=== PATIENT | female | born 1955 | race African-American/Black ===

== ENCOUNTER 2019-01-24 17:12 | Emergency (ER) | payer OTHER, BC ==
[~2019-01-24] VITALS: Ht 154.9 cm; Wt 47.6 kg
[2019-01-24 17:13] VITALS: BP 123/69
[2019-01-25 00:09] VITALS: BP 121/68
[2019-01-25 00:26] VITALS: BP 121/68
--- NOTE | 2019-01-25 06:31 | NUR ---
PT IN ED HOLDING. ASSESSMENT CHARTED. PT' PEGTUB SITE COVERED WITH DRESSING. PLANS ARE TO HAVE IR REINSERT PEG TUBE TODAY. AT BEDSIDE. PT RESTING COMFORTABLY IN INPATIENT BED. CONTINUE WITH PLAN OF CARE.
[2019-01-25 13:05] VITALS: BP 151/64
== END 2019-01-25 13:20 | disposition home or self-care (01) ==
LOC: ER 17:12 → EROBS 19:08 → ER 01-25 13:20
DX: K94.23 Gastrostomy malfunction (principal); Z88.1 Allergy status to other antibiotic agents; Z86.73 Personal history of transient ischemic attack (TIA), and cerebral infarction without residual deficits; Z87.442 Personal history of urinary calculi

== ENCOUNTER 2020-02-18 17:19 | Inpatient (IN) | payer OTHER ==
[~2020-02-18] VITALS: Ht 152.4 cm; Wt 44.8 kg
[2020-02-18 18:19] LABS: HEMATOCRIT 55.1 % (37.0-47.0); HEMOGLOBIN 17.9 gm/dL (12.0-15.0); MCH 29.7 pg (26.0-34.0); MCHC 32.5 g/dL (28.0-37.0); MCV 91.6 fL (80.0-100.0); RBC 6.02 mil/uL (4.20-5.00); RDW 15.1 % (10.5-14.5); WBC 5.2 thou/uL (4.0-11.0)
[2020-02-18 18:47] LABS: ALBUMIN 3.7 g/dL (3.4-5.0); CALCIUM 10.2 mg/dL (8.5-10.1); CREATININE 0.9 mg/dL (0.6-1.0); TOTAL BILIRUBIN 1.6 mg/dL (<0.1-1.0); TOTAL PROTEIN 7.6 g/dL (6.4-8.2)
[2020-02-18 18:48] LABS: POTASSIUM 6.1 mmol/L (3.5-5.1)
[2020-02-18 18:56] LABS: ABSOLUTE NEUTROPHILS 3.1 thou/uL (1.4-8.2); ANISOCYTOSIS 1+
[2020-02-18 18:58] LABS: PLATELET COUNT 84 thou/uL (150-400)
[2020-02-18] MEDS ORDERED: NORVASC5 MG PO (19:24)
[2020-02-18] MEDS ORDERED: CELEXA 20 MG TA20 MG PO (19:25)
[2020-02-18] MEDS ORDERED: FAMOTIDINE 20 M20 MG PO (19:25)
[2020-02-18] MEDS ORDERED: CHILDREN'S ASPI81 M1 PO (19:26)
[2020-02-18] MEDS ORDERED: KEPPRA100 MG/1 M PO (19:27)
[2020-02-18] MEDS ORDERED: MILK OF MA400 MG/5 M PO (19:28)
[2020-02-18 20:21] LABS: URINE BILIRUBIN NEGATIVE (Negative); URINE BLOOD 3+ (Negative); URINE CLARITY SL CLOUDY; URINE COLOR YELLOW; URINE GLUCOSE-RANDOM* NEGATIVE (Negative); URINE KETONES TRACE (Negative); URINE PROTEIN (DIPSTICK) NEGATIVE (Negative); URINE UROBILINOGEN 0.2 E.U./dl (0.2-1.0)
[2020-02-18 20:23] LABS: URINE LEUKOCYTES-REFLEX 3+ (Negative); URINE NITRITE-REFLEX POSITIVE (Negative)
[2020-02-18 20:48] LABS: BACTERIA-REFLEX >30 Many /HPF (None Seen); CASTS None Seen /LPF (None Seen); CRYSTALS None Seen /LPF (None Seen); SQUAMOUS 0-3 Few /LPF (0-3)
--- NOTE | 2020-02-18 20:49 | NUR ---
WILL COLLECT LACTIC WHEN PT RETURNS FROM IMAGING.
[2020-02-18 22:13] VITALS: BP 106/71
--- NOTE | 2020-02-18 22:25 | NUR ---
ATTEMPTED TO CALL REPORT TO CCU. REPORTS "THEY WILL CALL YOU BACK."
[2020-02-18 23:17] VITALS: BP 103/67
[2020-02-19 01:22] LABS: TROPONIN-I <0.06 ng/mL (<0.06)
[2020-02-19 02:10] LABS: SODIUM 175 mmol/L (136-145)
--- NOTE | 2020-02-19 02:35 | NUR ---
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
[2020-02-19 05:13] VITALS: BP 108/70
[2020-02-19 06:14] LABS: MCH 29.1 pg (26.0-34.0); MCHC 31.4 g/dL (28.0-37.0); MCV 92.7 fL (80.0-100.0); RBC 4.53 mil/uL (4.20-5.00); RDW 15.2 % (10.5-14.5); WBC 6.1 thou/uL (4.0-11.0)
[2020-02-19 06:19] LABS: CALCIUM 8.3 mg/dL (8.5-10.1); CREATININE 0.8 mg/dL (0.6-1.0); HEMOGLOBIN 13.2 gm/dL (12.0-15.0); MAGNESIUM 2.2 mg/dL (1.8-2.4)
--- NOTE | 2020-02-19 07:57 | EKG ---
[facility] [place] [address] ELECTROCARDIOGRAM REPORT Name: NICKOLAS FIELDS Room #: 218-P ADM IN M.R.#: [id number] Admission: 02/18/20 Attend Phys: Roel Galvez MD Discharge: Date of : 55 Report #: [id number] THIS REPORT FOR: cc: Roel Cuevas MD, Paul Piezas MD Lundgren,Jonny Ruelas MD [facility] ~ THIS REPORT FOR: //name// [facility] ED Test Date: 2020-02-18 Test Time: 18:29:49 Pat Name: NICKOLAS FIELDS Department: Room: 218 Gender: F Morning News Anchor: PRO : 1955 Requested By: Courtney Christina Order Number: [id number] MD: Jonny Redd Measurements Intervals [place] Rate: 96 P: 70 AR: 115 QRS: 65 QRSD: 92 T: 84 QT: 363 QTc: 459 Interpretive Statements Sinus rhythm Borderline short AR interval Nonspecific ST and T wave abnormality Compared to ECG 02/20/2016 14:54:37 Sinus bradycardia no longer present Nonspecific ST and T wave abnormality is now present Electronically Signed On 02-19-2020 7:56:28 CDT by Jonny Redd [email or web address] <ELECTRONICALLY SIGNED> By: Jonny Redd MD, [facility] 02/19/20 0756 1829 182 Jonny Redd MD, [facility] /EPI
[2020-02-19 08:00] VITALS: BP 105/73
[2020-02-19 08:13] LABS: APTT 29.6 Seconds (24.5-32.8); INR 1.3; PROTIME 13.7 Seconds (9.3-11.4)
--- NOTE | 2020-02-19 10:56 | NUR ---
Once PEG ready to use, recommend jevity 1.5 to start 20ml/hr and progress to goal of 35ml/hr. Defer any fluid iv, or water flushes to renal physician.
--- NOTE | 2020-02-19 11:45 | NUR ---
CHART REVIEWED. SPOKE TO Pt WHO REFUSES ANY P.T. AT THIS TIME. SHE STATES THAT JUST WANTS TO DO P.T. WITH HER AT HOME SHE'S BEEN DOING. P.T. PHONED Pt'S , JOHAN, WHO STATES THAT Pt IS DEPENDENT FOR ALL ADL'S AND ALL MOBILITY. WILL D/C P.T. AT THIS TIME Pt REFUSED AND Pt IS AT HER BASELINE.
[2020-02-19 13:14] VITALS: BP 109/71
--- NOTE | 2020-02-19 13:50 | NUR ---
Patient admits with hyponatremia. Sp with spouse by phone he reports with hx of CVA. He assists with all adls. She does not ambulate. Spouse reports he has a wc with a cushion in home and he assists with her transfers by "picking up" the patient. Spouse reports peg tube dislodged at home. He reports she was eating orally before peg tube dislodged, but also used peg tube. He approximated can and 1/2 a day of isosource. Spouse reports PCP is Dr Henriquez. HH in past and agreeable to HH care at [facility]. Plan for patient to [facility] [place] to care of spouse.
[2020-02-19 16:00] VITALS: BP 104/65
--- NOTE | 2020-02-19 18:24 | NUR ---
ASSUMED CARE OF PT AT SHIFT CHANGE. ASSESSMENTS CHARTED. MEDS GIVEN PER JAN. PT ALERT TO SELF. PEARSON IN PLACE. UO TODAY APPROX 475ML, FLUIDS 2860ML, BLADDER SCAN SHOWED 64ML. NOTIFIED DR. MARQUEZ. PLAN FOR POSSIBLE UTERINE ULTRASOUND TOMORROW AND EGD ON WEDNESDAY, WILL REPLACE PEG TUBE AT THAT TIME. WILL CONTINUE TO MONITOR AND FOLLOW POC.
[2020-02-19 19:48] VITALS: BP 109/63
--- NOTE | 2020-02-20 04:23 | NUR ---
ASSUMED CARE 1900. PT ALERT AND ORIENTED X 1. RESPONDS TO YES/NO QUESTIONS. FLUIDS D5 AT 250 ML/HR. PEARSON CATHETER INTACT. GOOD DRAINAGE. Q2 TURNS. VSS. PT AWAITS PEG TUBE PLACEMENTS. PT DENIES PAIN. NO OTHER C/O. WILL CONTINUE WITH CURRENT POC.
[2020-02-20 04:36] VITALS: BP 107/69
[2020-02-20 06:38] LABS: ALBUMIN 2.3 g/dL (3.4-5.0); CALCIUM 7.5 mg/dL (8.5-10.1); CREATININE 0.7 mg/dL (0.6-1.0); PHOSPHORUS 1.1 mg/dL (2.5-4.9)
[2020-02-20 06:42] LABS: POTASSIUM 2.8 mmol/L (3.5-5.1); TROPONIN-I 0.86 ng/mL (<0.06)
[2020-02-20 08:00] VITALS: BP 90/62
--- NOTE | 2020-02-20 09:27 | EKG ---
[facility] Carmela Mulilns [facility] [address] ELECTROCARDIOGRAM REPORT Name: NICKOLAS FIELDS Room #: 218-P ADM IN M.R.#: [id number] Admission: 02/18/20 Attend Phys: Gentry Felipe MD Discharge: Date of : 55 Report #: [id number] THIS REPORT FOR: cc: Roel Cuevas MD, Paul Piezas MD Couchonnal,Keshav Herrera MD ~ THIS REPORT FOR: //name// [facility] Test Date: 2020-02-20 Test Time: 08:32:59 Pat Name: NICKOLAS FIELDS Department: Room: 218 P Gender: F Sole Scraper: TERESE : 1955 Requested By: Sheela Bob Order Number: [id number] MD: Keshav Brand Measurements Intervals [place] Rate: 86 P: 33 WV: 123 QRS: -36 QRSD: 77 T: -43 QT: 491 QTc: 588 Interpretive Statements Sinus rhythm Inferior infarct, old Anteroseptal infarct, old Lateral leads are also involved Compared to ECG 02/18/2020 18:29:49 Electronically Signed On 02-20-2020 9:25:55 CDT by Keshav Brand [email or web address] <ELECTRONICALLY SIGNED> By: Keshav Brand MD 02/20/20924 1 1 Keshav Brand MD /EPI
--- NOTE | 2020-02-20 10:46 | 2DMMODE ---
[facility] [place] [address] 2 D/M-MODE ECHOCARDIOGRAM Name: NICKOLAS FIELDS Room #: 218-P ADM IN M.R.#: [id number] Admission: 02/18/20 Attend Phys: Gentry Felipe MD Discharge: Date of : 55 Report #: [id number] THIS REPORT FOR: cc: Roel Cuevas MD, Paul Piezas MD Lammoglia, Francisco J. MD ~ APPROVED REPORT Study performed: 02/20/2020 09:20:08 EXAM: Comprehensive 2D, Doppler, and color-flow Echocardiogram Patient Location: Bedside Room #: 218 Status: routine BSA: 1.21 HR: 100 bpm BP: 107/69 mmHg Rhythm: Tachycardia Other Information Study Quality: Technically DifficultTechnically Limited Technically limited study due to uncooperative patient, inability to position patient. Indications Elevated Troponin Hypertension/HDD 2D Dimensions IVC: 14.00 mm Tricuspid Valve TR Peak Joseph.: 2.31 m/s TR Peak Gr.: 21.27 mmHg PA Pressure: 26.00 mmHg Left Ventricle The left ventricle is normal size. There is hypokinesis in the apex and adjacent wall. There is normal left ventricular wall thickness. The left ventricular ejection fraction is within the normal range. LVEF is 55% by calculations although visually the ejection fraction is closer to 40% with the apical wall motion abnormalities The left ventricular diastolic function is abnormal. [facility] [address] [place] [address] 2 D/M-MODE ECHOCARDIOGRAM Name: NICKOLAS FIELDS Room #: 218-P ADM IN M.R.#: [id number] Admission: 02/18/20 Attend Phys: Gentry Felipe, Discharge: Date of : 55 Report #: [id number] Right Ventricle The right ventricle is normal size. The right ventricular systolic function is normal. Atria The left atrium size is normal. The right atrium size is normal. Aortic Valve The aortic valve is normal in structure. No aortic regurgitation is present. There is no aortic valvular stenosis. Mitral Valve The mitral valve is normal in structure. Trace mitral regurgitation. No evidence of mitral valve stenosis. Tricuspid Valve The tricuspid valve is normal in structure. There is trace tricuspid regurgitation. Estimated PAP 26 mmHg. There is no pulmonary hypertension. Pulmonic Valve Pulmonic valve is not well visualized. Great Vessels The aortic root is normal in size. IVC is normal in size and collapses >50% with inspiration. Pericardium There is no pericardial effusion. <Conclusion> The left ventricle is normal size. There is hypokinesis in the apex and adjacent wall. LVEF is 55% by calculations although visually the ejection fraction is closer to 40% with the apical wall motion abnormalities The aortic valve is normal in structure. The mitral valve is normal in structure. Trace mitral regurgitation. The tricuspid valve is normal in structure. There is trace tricuspid regurgitation. Estimated PAP 26 mmHg. There is no pulmonary hypertension. [facility] [address] [place] [address] 2 D/M-MODE ECHOCARDIOGRAM Name: CORA FIELDSERNESTO Bah Room #: 218-P ADM IN .R.#: [id number] Admission: 02/18/20 Attend Phys: Gentry Felipe, Discharge: Date of : 55 Report #: [id number] Pulmonic valve is not well visualized. There is no pericardial effusion. <ELECTRONICALLY SIGNED> By: Jorge Cruz MD 02/20/20 1045 1045 1045 Jorge Cruz MD /INF
[2020-02-20 12:00] VITALS: BP 123/93
[2020-02-20 13:29] LABS: CALCIUM 8.1 mg/dL (8.5-10.1); CREATININE 0.8 mg/dL (0.6-1.0); PHOSPHORUS 1.1 mg/dL (2.5-4.9)
[2020-02-20 16:00] VITALS: BP 91/77
--- NOTE | 2020-02-20 16:01 | NUR ---
FAXED REFERRAL TO [facility] SPOKE WITH SERAFIN IN INTAKE SHE RECEIVED REFERRAL AND CAN ACCEPT AT DC. DP TO FOLLOW.
--- NOTE | 2020-02-20 17:38 | NUR ---
ASSUMED CARE OF PT AT SHIFT CHANGE. ASSESSMENT CHARTED. MEDS GIVEN PER JAN. PT ALERT TO SELF. NO C/O PAIN. CRITICAL VALUES OF POTSSIUM ADDRESS WITH IV POTASSIUM REPLACEMENT. CARDIOLOGY CONSULTED D/T ELEVATED TROPONIN. GYNOCOLOGY CONSULT REQUESTED HUSBANDS CONTACT INFO TO DISCUSS OPTIONS. PLAN FOR EDG AND PEG PLACEMENT TOMORROW. HAS CONSENTED TO PROCEDURE. UO SIGNIFICANTLY INCREASED FROM YESTERDAY. WILL CONTINUE TO MONITOR AND FOLLOW POC.
[2020-02-20 19:12] LABS: CALCIUM 8.2 mg/dL (8.5-10.1); CREATININE 0.6 mg/dL (0.6-1.0); PHOSPHORUS 4.3 mg/dL (2.5-4.9)
[2020-02-20 19:55] VITALS: BP 87/61
[2020-02-21 00:13] VITALS: BP 74/40
[2020-02-21 01:15] VITALS: BP 80/49
[2020-02-21 01:20] LABS: CHOLESTEROL 162 mg/dL (<200); HDL CHOLESTEROL 34 mg/dL (>40); LDL CHOLESTEROL 95 mg/dL (<100); SERUM ASSESSMENT Clear; TC:HDL 4.8 Ratio (Not establshd); TRIGLYCERIDE 165 mg/dL (<150); VLDL 33 mg/dL (<40)
--- NOTE | 2020-02-21 04:16 | NUR ---
ASSESSMENTS CHARTED, MEDS CHARTED GIVEN. PATIENT BEDBOUND. ALERT TO PERSON. PATIENT SINUS RHYTHM TO SINUS TACH ON TELEMETRY. ON ROOM AIR. PEARSON IN PLACE. PATIENT IS STRICT NPO. MOUTH CARE WAS GIVEN. PATIENT IS SCHEDULED TO HAVE AND EGD AND HER PEG TUBE REPLACED TODAY. Q2 TURNS DURING SHIFT. PATIENT HAS RIGHT SIDED WEAKNESS AND CONTRACTURES. ON LOW AIR LOSS MATTRESS TO PROTECT RADHA PROMINENCES. DENIED PAIN. PATIENTS BLOOD PRESSURE WAS SOFT DURING DAY AND AT START OF SHIFT, DECREASED AT MIDNIGHT VITALS WITH MAP FALLING TO 40. BOLUS FLUIDS WERE GIVEN AND GTT WAS CONTINUED.
[2020-02-21 04:45] VITALS: BP 90/66
[2020-02-21 08:25] LABS: HEMATOCRIT 44.1 % (37.0-47.0); HEMOGLOBIN 14.5 gm/dL (12.0-15.0); MCH 29.3 pg (26.0-34.0); MCHC 32.9 g/dL (28.0-37.0); RBC 4.96 mil/uL (4.20-5.00); RDW 14.5 % (10.5-14.5); WBC 5.8 thou/uL (4.0-11.0)
--- NOTE | 2020-02-21 09:28 | NUR ---
ASSUMED CARE OF OF PT AT SHIFT CHANGE, SEE SEPARATE INTERVENTIONS FOR ASSESSMENTS. PT VERY LANGUID, MINIMAL MOVEMENT, OPENS EYES, A&0X2-3, DENIES ANY NEEDS/PAIN, SWABBED MOUTH AND APPLIED MOISTURIZER, BATH ALREADY DONE BY STOCK SUPERVISOR, POSITIONING EVERY TWO HOURS - THIS IS WHEN SHE HAS PAIN. NPO, NOTED PROCEDURE FOR TODAY, WILL CALL FAMILY SOON ABLE TO SEEK PERMISSION AND HAVE ANOTHER RN CO-SIGN, IF APPLICABLE. ENCOURAGED HER TO USE CALL LIGHT FOR NEEDS AND IF SHE FELT TOO WEAK AND WAS UNABLE TO BANG CALL LIGHT ON BED RAIL. SHE SHOWED RETURN DEMO, WITH SLIGHT STRUGGLE. FREQ CHECKS KELLE W/COMFORT. WILL CONTINUE TO MONITOR
--- NOTE | 2020-02-21 10:57 | NUR ---
spoke with dietary plan peg tube and then home with HH care. Informed kennel assistant patients spouse reports isosource at home and oral eating programmer business. Patient to util;ize only peg at home. Low Heel Builder will sp wtih spouse and educate on feeding of peg tube at home.
[2020-02-21 11:30] VITALS: BP 85/55
[2020-02-21 16:30] VITALS: BP 117/66
[2020-02-21 20:26] VITALS: BP 89/61
[2020-02-22] VITALS (14 sets, daily range): BP systolic 70–110; BP diastolic 47–78
--- NOTE | 2020-02-22 05:36 | NUR ---
ASSUMED PT CARE AT AROUND 1900, PT IS ALERT AND ORIENTED TO SELF, ANSWERS YES OR NO QUESTIONS, DENIES PAIN OR SOB, ST ON THE MONITOR, BP DROPPED THIS MORNING, SHIP LABORER NOTIFIED AND ORDER OF NS RECEIVED AND ADMINISTERED ORDERED, PT REMAINED NPO, QTURNS MAINTAINED, PT IS RESTING IN BED WITH NO SIGNS OF DISTRESS NOTED, WILL CONTINUE TO MONITOR
[2020-02-22 07:28] LABS: HEMATOCRIT 37.1 % (37.0-47.0); MCH 30.1 pg (26.0-34.0); MCHC 33.3 g/dL (28.0-37.0); MCV 90.4 fL (80.0-100.0); RBC 4.1 mil/uL (4.20-5.00); RDW 14.5 % (10.5-14.5); WBC 7.7 thou/uL (4.0-11.0)
[2020-02-22 07:54] LABS: HEMOGLOBIN 12.4 gm/dL (12.0-15.0)
[2020-02-22 08:03] LABS: CALCIUM 8.1 mg/dL (8.5-10.1); CREATININE 0.6 mg/dL (0.6-1.0); POTASSIUM 3.2 mmol/L (3.5-5.1)
[2020-02-22 08:09] LABS: TROPONIN-I 1.05 ng/mL (<0.06)
--- NOTE | 2020-02-22 13:20 | EKG ---
[facility] Carmela [place] [address] ELECTROCARDIOGRAM REPORT Name: NICKOLAS FIELDS Room #: 218-P ADM IN M.R.#: [id number] Admission: 02/18/20 Attend Phys: Gentry Felipe MD Discharge: Date of : 55 Report #: [id number] THIS REPORT FOR: cc: oRel Cuevas MD, Paul Piezas MD Couchonnal,Keshav Herrera MD ~ THIS REPORT FOR: //name// [facility] Test Date: 2020-02-22 Test Time: 07:46:42 Pat Name: NICKOLAS FIELDS Department: Room: 218 P Gender: F Sr. Payroll Manager: TERESE : 1955 Requested By: Enedina Hearn Order Number: [id number] MD: Keshav Brand Measurements Intervals [place] Rate: 112 P: 63 GA: 92 QRS: -25 QRSD: 75 T: 243 QT: 465 QTc: 635 Interpretive Statements Sinus tachycardia Inferior infarct, age indeterminate Abnrm T, consider ischemia, anterolateral lds Compared to ECG 02/20/2020 08:32:59 Electronically Signed On 02-22-2020 13:18:46 CDT by Keshav Brand [email or web address] <ELECTRONICALLY SIGNED> By: Keshav Brand MD 02/22/20 1318 Keshav Brand MD /EPI
--- NOTE | 2020-02-22 13:21 | NUR ---
SW reviewed chart and spoke with nursing and attending physician. Pt was scheduled to have peg tube placed today. Pt's blood pressure was low earlier today. Peg tube placement postponed. Plan is for pt to have peg placed tomorrow, and then home with [facility] when medically stable. ANALI is following to assist as needed with discharge planning.
--- NOTE | 2020-02-22 19:52 | NUR ---
RECEIVED PT'S CARE AROUND 0740; PT. ON BED; RESTING WITH EYES CLOSED; PER NIGHT RN PT'S SBP LOW; BOLUS GIVEN, BUT BP RE-ASSESSMENT NOT PERFORMED; SBP ASSESSED; SBP ON THE 90s; ST ON THE MONITOR; PER ORDER PT'S STATUS MS; NPO; NOT CONTINUE FLUIDS ORDERS; PHYSICIAN PAGED; ORDERS RECEIVED & ON PLACED; ON EMAR NS AT 250ML/H; PHYSICIAN ROUNDING AROUND 0900; PER VERBAL ORDERS STARTED BOLUS OPEN WIDE; 1000 ML/H; EKG PERFORMED; DIFFERENT FROM LAST ONE; WOODWORK SALVAGE INSPECTOR SUPERVISOR SPRING UP ROUNDING; AWARED OF IT; UPDATE ABOUT PT'S HEALTH STATUS; ORDERS ON PLACE; TROPONING ELEVATED; SUPERVISOR SPRING UP NOTIFIED; BP MONITORING; CHECK CHARTING; DURING GI ROUNDING; PHYSICIAN UPDATE ABOUT PT'S STATUS; NO IV FLUIS OR IV NUTRITION; NO NEW ORDERS; ORDERS ON PLACED; PPN STARTED; CONTINUOS IV FLUIDS STARTED; SBP ABOVE 100s; CALL RECEIVED FROM SPOUSE; UPDATED ABOUT PT'S STATUS; URINE OUTPUT 150 ML/H; PHYSICIAN NOTIFIED; NO NEW ORDERS; VENOUS ABGs ORDERS ON PLACE; RT NOTIFIED; TURNED FROM SIDE TO SIDE; ASSESSMENT CHARGED; FOLLOWING POC; PASSED ON REPORT;
[2020-02-23 00:19] VITALS: BP 105/71
[2020-02-23 04:26] VITALS: BP 102/58
--- NOTE | 2020-02-23 04:35 | NUR ---
PT RESTING QUIETLY IN BED, TURNING NEEDED, LEGS ELEVATED ON PILLOW, PEARSON WITH DARK YELLOW DRAINAGE WITH 500ML OUT PUT THIS SHIFT, BM THIS AM INCON'T, PPN AND LIPIDS INFUSING, NPO WAITING FOR PEG PLACEMENT WHEN STABLE, C/O OF RIGHT SIDED PAIN WHEN TURNING DENIES NEED FOR PAIN MEDS, WILL CON'T TO MONITOR PER PPOC.
[2020-02-23 05:29] LABS: MCH 30.6 pg (26.0-34.0); MCHC 33.6 g/dL (28.0-37.0)
[2020-02-23 05:33] LABS: HEMATOCRIT 34.1 % (37.0-47.0); HEMOGLOBIN 11.5 gm/dL (12.0-15.0); MCV 91.1 fL (80.0-100.0); PLATELET COUNT 48 thou/uL (150-400); RBC 3.75 mil/uL (4.20-5.00); RDW 14.2 % (10.5-14.5); WBC 5.3 thou/uL (4.0-11.0)
[2020-02-23 05:47] LABS: CALCIUM 7.3 mg/dL (8.5-10.1); CREATININE 0.5 mg/dL (0.6-1.0); POTASSIUM 3.1 mmol/L (3.5-5.1)
[2020-02-23 07:00] VITALS: BP 91/60
--- NOTE | 2020-02-23 07:36 | NUR ---
ASSUMED CARE OF PT AT SHIFT CHANGE, ALERT TO BDATE, SLURRED SPEECH, LIKES TO KEEP EYES CLOSED, WILL ANSWER YES OR NO TO CHANGING TV CHANNELS FOR VARIETY. SEE SEPARATE INTERVENTIONS FOR ASSESSMENTS. TURNING MONSTER PACHECO RUNNING SO DOING EVERY 6H BG CHECKS, WNL AT THIS TIME. IS NOT IMPULSIVE ALTHOUGH BED ALARM ENGAGED. NOTED MAG LOW WILL FIND OUT COMPATIBILITY AND RUN THIS A.M. ENCOURAGED PT TO CALL OUT OR USE CALL LIGHT FOR ANY NEEDS, SHE NODS AND CLOSES HER EYES. WILL CONTINUE TO MONITOR FREQUENTLY FOR COMFORT
--- NOTE | 2020-02-23 08:30 | NUR ---
New recommendations. Once PEG placed, start jevity 1.5 at 25ml/hr to reach goal of 45ml/hr. Bolus for home recs are 1 carton, 4-5x per day.
--- NOTE | 2020-02-23 09:30 | NUR ---
If patient should dc over weekend Please call [phone] to alert of dc. Fax orders to [phone].
[2020-02-23 09:31] VITALS: BP 91/60
[2020-02-23 13:34] LABS: ABSOLUTE NEUTROPHILS 3.7 thou/uL (1.4-8.2); LARGE PLATELETS FEW; PLATELET ESTIMATE DECREASED
[2020-02-23 16:20] VITALS: BP 97/62
[2020-02-23 20:05] VITALS: BP 99/60
[2020-02-24 05:05] VITALS: BP 102/69
--- NOTE | 2020-02-24 08:06 | NUR ---
ASSUME CARE 1900. PT/VITALS TABLE. BP RUNS SOFT BUT STABLE. NO DISTRESS NOTED THROUGTH THE NIGHT. SR/ST ON MONITOR. ADEQUARTE REST NOTED. SATS OIK ON ROOM AIR. ASSESSMENT CHARTED. PROGRESSING MODERATELY WITH POC. PLAN IS CONTIUE WITH PPN, ABX AND POSSIBLITY OF PEG TUBE PLACEMENT. WILL CONTIUE TO MONITOR ND FOLLOW WITH POC
[2020-02-24 08:15] VITALS: BP 97/62
[2020-02-24 08:34] LABS: CALCIUM 7.7 mg/dL (8.5-10.1); CREATININE 0.5 mg/dL (0.6-1.0); MAGNESIUM 1.8 mg/dL (1.8-2.4)
[2020-02-24 12:15] VITALS: BP 109/76
[2020-02-24 16:47] VITALS: BP 100/64
--- NOTE | 2020-02-24 18:00 | NUR ---
RECEIVED PT'S CARE AROUND 0740; PT. ON BED RESTING WITH EYES CLOSED; EQUAL CHEST RISING NOTICED; DURING AM ASSESSMENT SLEEP INTERRUPTED; ALERT TO PERSON; NO C/O PAIN AT REST; C/O PAIN WHEN TURNED FROM SIDE TO SIDE; AM MEDICATIONS GIVEN; NOTICED AMIODARONE FILTER ON PPN LINE & NO FILTER ON LIPIDS LINE; LIPIDS FILTER CONNECTED TO LIPIDS LINE & D/C PPN FILTER; SR-ST ON THE MONITOR; BP WNL; URINE OUTPUT ABOVE 1000 ML; CHECK CHARTING; TURNED FROM SIDE TO SIDE THROUGH THE DAY; HAD 2 BMs; SPOUSE CALLED TWICE DURING THE DAY; UPDATE ABOUT PT'S HEALTH; REQUESTED TO TALK WITH PT.; PT. ABLE TO TALK WITH FAMILY; ASSESSMENT CHARGED; FOLLOWING POC; WILL PASS ON REPORT;
[2020-02-24 20:57] VITALS: BP 119/55
[2020-02-25] VITALS: BP 98/69
[2020-02-25 05:00] VITALS: BP 94/54
--- NOTE | 2020-02-25 06:33 | NUR ---
PATIENTS CARES WERE ASSUNED AT SHIFT CHANGE. PATIENT WAS ASSESSED AND MEDS WERE PASSED.PATIENT CONTINUED TO BE NONVERBAL THIS SHIFT EVEN WITH ENCOURGMENT TO CONVERSE. PATIENT WAS TURNED 2Q HOURS FOR COMFORT. PATIENT DID SLEEP MOST OF THIS SHIFT. HOURLY ROUNDS WERE DONE. THE BED IS IN A LOW AND LOCKED POSITION
[2020-02-25 08:14] VITALS: BP 98/70
[2020-02-25 11:24] VITALS: BP 99/60
[2020-02-25 15:36] VITALS: BP 97/63
--- NOTE | 2020-02-25 16:19 | NUR ---
PT CARE ASSUMED APPROX 0700. ASSESSMENTS CHARTED. PT DENIES PAIN AND SOA. VSS. TURNING PT Q2HRS AND PRN. TOLERATING POC. SLEPT MOST OF SHIFT BUT REMAINED EASILY AROUSABLE. NO DISTRESS NOTED.
[2020-02-25 19:56] VITALS: BP 99/68
[2020-02-26] VITALS (7 sets, daily range): BP systolic 81–107; BP diastolic 56–67
[2020-02-26 05:16] LABS: HEMATOCRIT 33.5 % (37.0-47.0); HEMOGLOBIN 11.4 gm/dL (12.0-15.0); MCH 30.3 pg (26.0-34.0); MCV 88.9 fL (80.0-100.0); RBC 3.76 mil/uL (4.20-5.00); RDW 14.6 % (10.5-14.5); WBC 4.9 thou/uL (4.0-11.0)
[2020-02-26 05:28] LABS: ALBUMIN 1.5 g/dL (3.4-5.0); CALCIUM 7.6 mg/dL (8.5-10.1); CREATININE 0.5 mg/dL (0.6-1.0); POTASSIUM 3.6 mmol/L (3.5-5.1); TOTAL BILIRUBIN 0.5 mg/dL (<0.1-1.0); TOTAL PROTEIN 4.5 g/dL (6.4-8.2)
--- NOTE | 2020-02-26 07:23 | HC ---
[facility] [place] [address] CONSULTATION Name: NICKOLAS FIELDS Room #: 218-P ADM IN M.R.#: [id number] Admission: 02/18/20 Attend Phys: Gentry Felipe MD Discharge: Date of : 55 Report #: [id number] THIS REPORT FOR: cc: Roel Cuevas MD, Roel Rivers,Parveen Serrano MD ~ CC: Roel Cuevas DATE OF SERVICE: 02/19/2020 REASON FOR CONSULTATION: Hypernatremia. REASON FOR PRESENTATION: Mental status changes. HISTORY OF PRESENT ILLNESS: A 64-year-old who is not able to provide me with any of the details of her history. She had a hemorrhagic stroke back in 2016, complicated by significant dysphagia, status post PEG tube placement, dislodgement. There have been major issues with her PEG tube, refusal to eat and drink. 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 She reported some vaginal bleeding. When the patient presented yesterday, she was found to have a sodium of 173 mandating Nephrology consultation PAST MEDICAL HISTORY: Unobtainable given the patient's current mental status; however, it does look like that the patient has had repeated hospitalizations previously back in 2019 and it is listed that the patient had be followin. Status post hemorrhagic stroke. 2. Kidney stones. 3. Seizure history. ALLERGIES: Per medical chart, LEVOFLOXACIN. REVIEW OF SYSTEMS: Unobtainable given the patient's current mental status. SOCIAL HISTORY: Unobtainable given the patient's current mental status. FAMILY HISTORY: Unobtainable given the patient's current mental status. PHYSICAL EXAMINATION: VITAL SIGNS: Blood pressure is 108/70, temperature 36.3. The patient is completely disoriented. She is noncommunicative. HEAD AND NECK: No jugular venous distention. Dry mucous membrane. CHEST: No crackles. CARDIOVASCULAR: No rub detected. ABDOMEN: Soft, nontender. [facility] [address] [place] [address] CONSULTATION Name: NICKOLAS FIELDS Niurka Room #: 218-P [facility] IN M.R.#: [id number] Admission: 02/18/20 Attend Phys: Gentry Felipe MD Discharge: Date of : 55 Report #: [id number] EXTREMITIES: Lower extremities, no edema. Overall, condition, extremely cachectic and emaciated. LABORATORY DATA: Sodium is 170, potassium is 3, BUN is 34, creatinine is 0.8. ASSESSMENT, IMPRESSION, AND PLAN: 1. Severe hypernatremia due to severe free water deficit. 2. Increase the rate of her current IV fluid. 3. Cultures obtained and we will follow. Sodium is already trending down and it is expected that it will continue to trend down. 4. Discussed with the family plans regarding her long-term issues, intake. This will be recurrent electrolyte problems. 5. Replace potassium. 6. We will continue to follow. <ELECTRONICALLY SIGNED> By: Parveen Rivers MD 02/26/20 0723 0743 0815 Parveen Rivers MD /nt
--- NOTE | 2020-02-26 07:38 | NUR ---
PATIENT CARES WERE ASSUMED AT SHIFT CHANGE. PATIENT WAS ASSESSED AND MEDS WERE PASSED. PATIENT REMAINS NON VERBAL FOR ME X2 NIGHTS. PATIENT WAS TURNED 2Q HOURS. HOURLY ROUNDS WERE DONE. THE BED IS IN A LOW AND LOCKED POSITION
--- NOTE | 2020-02-26 11:39 | NUR ---
Spoke with spouse. Patient rec HH from [facility] in past but they reported last week at capacity. Sp with no prference for HH care and agreeable to [facility] at [place]. Cont plan for home with HH at [place].
--- NOTE | 2020-02-26 14:46 | NUR ---
FAXED CLINICAL UPDATE TO [facility] SPOKE WITH SERAFIN IN INTAKE SHE RECEIVED UPDATE. DP TO FOLLOW.
[2020-02-26 15:07] LABS: GLOBULIN TOTAL 2.3 g/dL (2.2-3.9); M-SPIKE Not Observed g/dL (Not Observed)
--- NOTE | 2020-02-26 16:22 | NUR ---
CONVERSANT, FEW WORDS BUT APPROPRIATE EXCEPT ASKS ONCE FOR ASSISTANCE WITH HER VACUUM DRAFTER TOPOGRAPHICAL. REPOSITIONED. PEG TUBE PLACEMENT PLANNED FOR TOMORROW 02/26. ST PER TELE. TEMP 99.3 AXILLARY NOTED, DR. CEJA INFORMED. PLTS 91, BP SOFT. FALL PRECAUTIONS IN PLACE. WILL CONTINUE TO FOLLOW CLOSELY.
--- NOTE | 2020-02-27 03:43 | NUR ---
A&O TO SELF, ASESSMENTS CHARTED, ST ON THE MONITOR, QTURNS MAINTAINED, BP REMAINS SOFT BUT STABLE, REMAINS NPO WITH LIPIDS AND PPN ORDERED, BS STABLE, DENIES PAIN OR SOB, SLEEPING WITH NO DISTRESS NOTED AT THIS TIME, WILL CONTINUE TO MONITOR
[2020-02-27 04:22] VITALS: BP 102/61
[2020-02-27 05:00] LABS: HEMATOCRIT 32.2 % (37.0-47.0); HEMOGLOBIN 11.2 gm/dL (12.0-15.0); MCH 30.9 pg (26.0-34.0); MCHC 34.8 g/dL (28.0-37.0); MCV 88.7 fL (80.0-100.0); RBC 3.63 mil/uL (4.20-5.00); RDW 14.4 % (10.5-14.5); WBC 5.5 thou/uL (4.0-11.0)
[2020-02-27 08:42] VITALS: BP 100/64
[2020-02-27 10:30] VITALS: BP 106/53
[2020-02-27 10:41] VITALS: BP 106/53
[2020-02-27 16:51] VITALS: BP 99/64
--- NOTE | 2020-02-27 17:26 | NUR ---
RECEIVED PT'S CARE AROUND 0735; PT. ON BED; EQUAL CHEST RISING NOTICED; DURING AM ASSESSMENT PT. ALERT TO PERSON; NO C/O PAIN; AM MEDICATION GIVEN BEFORE GOING TO GI LAB; BACK FROM GI LAB AROUND 1020; PEG TUBE ON PLACED; ABD BINDER ON PLACED; PER GI PROFESSIONAL DEVELOPMENT MANAGER TIM PPN & LIPIDS FOR TODAY; 02/27/2020; TURNED FROM SIDE TO SIDE THROUGH THE DAY; HAD BM; BROWN, LIQUID MUCOUS; ST ON THE MONITOR; LOW 100s; GOOD URINE OUTPUT; CHECK CHARTING; ASSESSMENT CHARGED; FOLLOWING POC; WILL PASS ON REPORT;
[2020-02-27 20:45] VITALS: BP 119/65
[2020-02-28] VITALS (8 sets, daily range): BP systolic 91–107; BP diastolic 60–68
--- NOTE | 2020-02-28 07:39 | NUR ---
ASSUMED PT CARE AT AROUND 1900, PT IS ALERT AND ORIENTYED TO SELF, ANSWERS QUESTIONS APPROPRIATELY, ST/SR ON THE MONITOR, DENIES PAIN OR SOB, PRG TUBE IN PLACE, CONTINUES TO RECEIVE PPN/LIPIDS ORDERED, REMAINED INCONTINENT OF BOWEL, PEARSON IN PLACE DRAINING CLEAR YELLOW URINE, BP REMAINS SOFT BUT STABLE, SLEPT WELL THROUGH THE NIGHT, PROGRESSIN SLOWLY TOWARDS POC
--- NOTE | 2020-02-28 08:38 | NUR ---
When PEG ready to use recommend start jevity 1.5 at 25ml/hr and progress to goal of 45ml/hr. Taper off PPN as tube feed rate increases. Recommend water flushes of 200ml QID. Once continuous rate tolerated, then transition to bolus for home of jevity 1.5, 4-5 cartons per day followed by 200ml water flush.
--- NOTE | 2020-02-28 13:29 | NUR ---
tenative plan for dc tomorrow with care. Sp with RN
--- NOTE | 2020-02-28 18:22 | NUR ---
PT CARE ASSUMED APPROXIMATELY 0700. PT ASSESSMENTS CHARTED. PT MEDICATION CHARTED. LIPIDS COMPLETE. PROCAL COMPLETE. PT ON TUBE FEEDING 1225. PEARSON D/C'D. PT TURNED Q2, PT COMPLAINS OF PAIN WHEN TURNED. VSS. PT DENIES PAIN CURRENTLY. NURSE WILL CONTINUE TO MONITOR.
[2020-02-29 04:06] VITALS: BP 104/63
[2020-02-29 08:08] VITALS: BP 92/62
[2020-02-29 11:30] VITALS: BP 93/56
[2020-02-29 11:43] VITALS: BP 91/60
--- NOTE | 2020-02-29 13:17 | NUR ---
PT DISCHARGING TODAY TO HOME WITH [facility] FAXED DC ORDERS/SUMMARY SPOKE WITH YAYO IN INTAKE SHE RECEIVED ORDERS AND WILL NOTIFY PT TIME OF VISITS.
--- NOTE | 2020-02-29 13:31 | NUR ---
RECEIVED PT'S CARE AROUND 0720; PT. ON BED; RESTING WITH EYES CLOSED; EQUAL CHEST RISING NOTICED; AM MEDICATIONS GIVEN; NO C/O PAIN; FEEDING RATE 45 ML/H; AFTER 1000 FEEDING RESIDUAL MONITOR; 150 ML OBTAINED; DR. CEJA ROUNDING ON PT.; NOTIFIED; GI NOTIFIED; NO NEW ORDERS; PER DR. CEJA EDUCATED PT'S CAREGIVER ABOUT FLUSHING PEG TUBE WITH 200 ML WATER QID; SPOUSED CALLED; UPDATE ABOUT PT'S HEALTH & POC; ST. UNDERSTANDING; INSTRUCTIONS WROTE OVER D/C INSTRUCTIONS; PEG TUBE FLUSH WITH 200 ML PER ORDER; ST ON THE MONITOR; PER PATTERN MARKING SUPERVISOR RIDE SCHEDULED AT 1400; SPOUSE NOTIFIED; ST. UNDERSTANDING; ASSESSMENT CHARGED; FOLLOWED POC; WORKING ON D/C ORDERS;
[2020-02-29 13:39] VITALS: BP 91/60
== END 2020-02-29 14:27 | disposition home health service (06) | DRG 70 ==
LOC: ER 17:19 → EROBS 21:23 → 2N 21:23
PROVIDERS: Hospitalist; Internal Medicine; Internal Medicine Gastroenterology; Internal Medicine Hematology & Oncology; Nurse Practitioner Family; Physician Assistant; Radiology Vascular & Interventional Radiology; ADMIT Internal Medicine
PROC: 0DH63UZ Insertion of Feeding Device into Stomach, Percutaneous Approach (ICD-10-PCS; principal; 2020-02-18)
DX: G93.41 Metabolic encephalopathy (principal); E43 Unspecified severe protein-calorie malnutrition; E87.0 Hyperosmolality and hypernatremia; N39.0 Urinary tract infection, site not specified; I69.351 Hemiplegia and hemiparesis following cerebral infarction affecting right dominant side; Z68.1 Body mass index [BMI] 19.9 or less, adult; K94.23 Gastrostomy malfunction; E87.1 Hypo-osmolality and hyponatremia; E87.5 Hyperkalemia; C54.1 Malignant neoplasm of endometrium; E86.0 Dehydration; K59.09 Other constipation; I10 Essential (primary) hypertension; K21.9 Gastro-esophageal reflux disease without esophagitis; F32.9 Major depressive disorder, single episode, unspecified; N93.9 Abnormal uterine and vaginal bleeding, unspecified; D69.6 Thrombocytopenia, unspecified; N95.0 Postmenopausal bleeding; R79.89 Other specified abnormal findings of blood chemistry; R13.10 Dysphagia, unspecified; Z82.49 Family history of ischemic heart disease and other diseases of the circulatory system; Z82.3 Family history of stroke; Z87.442 Personal history of urinary calculi; Z79.82 Long term (current) use of aspirin; Z79.899 Other long term (current) drug therapy; Z88.1 Allergy status to other antibiotic agents; Z80.1 Family history of malignant neoplasm of trachea, bronchus and lung; Z82.5 Family history of asthma and other chronic lower respiratory diseases
CPT/HCPCS: 10081; 10797; 62110; 62900

== ENCOUNTER 2020-12-20 15:28 | Inpatient (IN) | payer OTHER ==
[~2020-12-20] VITALS: Ht 157.5 cm; Wt 41.1 kg
[~2020-12-20 15:28] MED LIST: CELEXA 20 MG TA20 MG PO; CHILDREN'S ASPI81 M1 PO; FAMOTIDINE 20 M20 MG PO; KEPPRA100 MG/1 M PO; MILK OF MA400 MG/5 M PO; NORVASC5 MG PO
[2020-12-20 15:30] VITALS: BP 121/54
[2020-12-20 15:58] LABS: ABSOLUTE NEUTROPHILS 12.5 thou/uL (1.4-8.2); BASOPHILS 0.5 % (0.0-2.0); EOSINOPHILS 0.1 % (0.0-3.0); HEMATOCRIT 32.2 % (37.0-47.0); HEMOGLOBIN 10.6 gm/dL (12.0-15.0); LYMPHOCYTES 11.4 % (24.0-44.0); MCH 28.7 pg (26.0-34.0); MCHC 32.9 g/dL (28.0-37.0); MCV 87.3 fL (80.0-100.0); MONOCYTES 5.8 % (1.0-8.0); PLATELET COUNT 182 thou/uL (150-400); POLYS 82.2 % (36.0-66.0); RBC 3.69 mil/uL (4.20-5.00); RDW 15.7 % (10.5-14.5); WBC 15.2 thou/uL (4.0-11.0)
[2020-12-20 16:07] LABS: CALCIUM 8.4 mg/dL (8.5-10.1); CREATININE 0.7 mg/dL (0.6-1.0); POTASSIUM 3.7 mmol/L (3.5-5.1)
[2020-12-20 16:14] LABS: ALBUMIN 2.9 g/dL (3.4-5.0); TOTAL BILIRUBIN 0.6 mg/dL (0.2-1.0); TOTAL PROTEIN 6.3 g/dL (6.4-8.2)
[2020-12-20] MEDS ORDERED: KEPPRA100 MG/1 M PO (16:19)
[2020-12-20] MEDS ORDERED: PROAIR HFA8.5 GM INH (16:20)
[2020-12-20] MEDS ORDERED: ACETAMINOPHEN500 MG PO (16:20)
[2020-12-20 17:08] LABS: URINE BILIRUBIN NEGATIVE (Negative); URINE BLOOD NEGATIVE (Negative); URINE CLARITY CLEAR; URINE COLOR YELLOW; URINE GLUCOSE-RANDOM* NEGATIVE (Negative); URINE KETONES NEGATIVE (Negative); URINE LEUKOCYTES-REFLEX NEGATIVE (Negative); URINE NITRITE-REFLEX NEGATIVE (Negative); URINE PROTEIN (DIPSTICK) NEGATIVE (Negative); URINE UROBILINOGEN 0.2 E.U./dl (0.2-1.0)
[2020-12-20 20:55] VITALS: BP 105/55
[2020-12-20 22:32] VITALS: BP 110/64
[2020-12-21] VITALS (10 sets, daily range): BP systolic 102–118; BP diastolic 53–63
--- NOTE | 2020-12-21 03:36 | NUR ---
PT ARRIVED TO UNIT APPROX 2145. DISCUSSED PLAN OF CARE WITH DR. RANGEL VIA PHONE, RECEIVED ORDERS FOR NPO AT MIDNIGHT. PT ORIENTED TO UNIT AND ROOM. PT AOX3, TO PERSON, PLACE, AND SITUATION. PT WITH INTERMITTENT FORGETFULNESS, EASILY REDIRECTABLE. PT DENIES SOB WHILE ON ROOM AIR. PT REPORTS 6-7/10 PAIN IN RIGHT HIP WORSENED WITH MOVEMENT. NO PRN PAIN MEDICATION ON EMAR UPON REVIEW, ONCALL PATIENT SAFETY OFFICER NOTIFIED, ORDERS RECEIEVED FOR PRN IV FENTANYL Q4HR. PT WITH CONTRACTURES THROUGHOUT BODY, VERY LIMITED MOBILITY TO BUE AND BLE. BUCKS TRACTION ORDERED, PT PROVIDED INFORMATION ON INTERVENTION, PT REFUSING BUCKS TRACTION DUE TO REPORTS OF PAIN WITH MOVEMENT AND COMFORT IN CURRENT POSITION. DR. RANGEL NOTIFIED, NO ORDERS RECEIVED. PT UNABLE TO LIE IN SUPINE POSITION DUE TO REGURGITATION/EMESIS X1. HEAD OF BED ELEVATED SLIGHTLY. PT NONAMBULATING, WHEELCHAIR DEPENDENT. PT NOTED TO HAVE EDEMA TO RLE. PT DENIES NUMBNESS AND TINGLING, CAPILLARY REFILL LESS THAN 3SEC IN ALL EXTREMITIES. PT RESTING IN BED THROUGHOUT SHIFT, FREQUENT REPOSITIONING ENCOURAGED. PT REFUSING REPOSITIOING DUE TO COMFORT IN CURRENT POSITION, WEDGE REMAINS IN PLACE UNDER BLE. COORDINATED CARE WITH DPOA/ JOHAN, RECEIVED VERBAL CONSENTS FOR ADMISSION. DPOA/ JOHAN IN AGREEANCE WITH PT DECISIONS. DPOA/ JOHAN ALSO REPORTS PT NORMALLY SIPS WATER AND TOLERATES PO INTAKE OF REGULAR DIET AT HOME, PEG TUBE USED FOR MEDICATIONS AND WATER FLUSHES ONLY. PT ENCOURAGED TO NOTIFY STAFF FOR ALL NEEDS, CALL LIGHT WITHIN REACH, BED ALARM ON , BED LOCKED IN THE LOWEST POSITION, FREQUENT MONITORING WILL CONTINUE.
[2020-12-21 05:39] LABS: HEMATOCRIT 28.3 % (37.0-47.0); HEMOGLOBIN 9.4 gm/dL (12.0-15.0); MCHC 33.3 g/dL (28.0-37.0); MCV 87.1 fL (80.0-100.0); RBC 3.25 mil/uL (4.20-5.00); RDW 15.4 % (10.5-14.5); WBC 10.5 thou/uL (4.0-11.0)
[2020-12-21 05:57] LABS: CALCIUM 8.4 mg/dL (8.5-10.1); CREATININE 0.6 mg/dL (0.6-1.0); POTASSIUM 4.1 mmol/L (3.5-5.1)
--- NOTE | 2020-12-21 09:04 | EKG ---
[address] [address] ELECTROCARDIOGRAM REPORT Name: NICKOLAS FIELDS Room #: 441-P [facility] IN ..#: [id number] Admission: 12/20/20 Attend Phys: Kareen Guadarrama MD Discharge: Date of : 55 Report #: [id number] [facility] ED Test Date: 2020-12-20 Test Time: 16:30:42 Pat Name: NICKOLAS FIELDS Department: Room: [facility] Gender: F Merchandising Assistant: JOHNATHAN : 1955 Requested By: Courtney Christina Order Number: [id number] MD: Keshav Brand Measurements Intervals [place] Rate: 73 P: 52 MI: 139 QRS: 47 QRSD: 98 T: -28 QT: 375 QTc: 414 Interpretive Statements Sinus rhythm Borderline repolarization abnormality Compared to ECG 02/22/2020 07:46:42 Sinus tachycardia no longer present Myocardial infarct finding no longer present Possible ischemia no longer present Electronically Signed On 12-21-2020 9:04:44 TRAVELING PLANT OPERATOR by Keshav Brand [email or web address] <ELECTRONICALLY SIGNED> By: Keshav Brand MD 12/21/20 0904 1630 1630 Keshav Brand MD /EPI
--- NOTE | 2020-12-21 09:06 | EKG ---
[address] [address] ELECTROCARDIOGRAM REPORT Name: NICKOLAS FIELDS Room #: 441-P [facility] IN ..#: [id number] Admission: 12/20/20 Attend Phys: Kareen Guadarrama MD Discharge: Date of : 55 Report #: [id number] [facility] ED Test Date: 2020-12-20 Test Time: 19:38:58 Pat Name: NICKOLAS FIELDS Department: Room: [facility] Gender: F Non Licensed Nuclear Plant Operator: STELLA : 1955 Requested By: Courtney Christina Order Number: [id number] MD: Keshav Brand Measurements Intervals [place] Rate: 87 P: 60 SC: 143 QRS: 35 QRSD: 76 T: 26 QT: 365 QTc: 439 Interpretive Statements Sinus rhythm Low voltage, extremity leads Nonspecific T abnrm, anterolateral leads Compared to ECG 12/20/2020 16:30:42 Low QRS voltage now present Electronically Signed On 12-21-2020 9:05:53 ONLINE MERCHANDISING SPECIALIST by Keshav Brand [email or web address] <ELECTRONICALLY SIGNED> By: Keshav Brand MD 12/21/2005 37 37 Keshav Brand MD /EPI
--- NOTE | 2020-12-21 14:07 | NUR ---
Assumed pt care this am, VS stable . PEG tube patent, medicacation crushed and given via tube. Alert to self, contractures and right hemaparesis evident. Pappas cat in place draining yellow urine. Seizure precautions in place. right lower ext edema noted. Pt went down to surgery at 10 am, at the beside.
--- NOTE | 2020-12-21 15:36 | HC ---
[facility] [place] [address] CONSULTATION Name: NICKOLAS FIELDS Room #: 441-P ADM IN M.R.#: [id number] Admission: 12/20/20 Attend Phys: Kareen Guadarrama MD Discharge: Date of : 55 Report #: [id number] THIS REPORT FOR: cc: Roel Cuevas MD, Paul Piezas MD Clymer, David J. MD ~ CHIEF COMPLAINT: Right femur fracture. HISTORY OF PRESENT ILLNESS: This very frail 65-year-old female has a history of previous stroke with chronic right-sided hemiplegia and chronic confusion. She is living at home with family assistance. I believe she is nonambulatory. Apparently, they were trying to fit her with a new wheelchair a number of days ago and in the process, felt a popping sensation in the right femur. She was dismissed from where she was being seen and then admitted several days later here at [facility] because of right thigh pain and swelling. X-rays here confirmed marked chronic osteopenia and a comminuted fracture of the right femur at about the junction of the middle and distal thirds. At the time of my evaluation, she is communicative, but seems quite frail and mildly confused. I have talked with her by phone about her history and current status. Objectively, she is quite frail and is responsive, but in short sentences and seems slightly confused. She appears to have rather significant spasticity, particularly on the right side and tends to be most comfortable in a flexed position. She has limited movement and strength in the right arm and right leg. The right femur is edematous and tender and there appears to be mild deformity consistent with a distal third femur fracture. She has limited sensation and movement in the right lower leg. She has better sensation and movement in the left side, but still has significant generalized neurologic deficit. The skin appears to be intact without any evidence of injury, vascular status appears to be satisfactory. X-rays of the pelvis, hips and right femur reveal rather significant chronic degenerative arthritis of both hips and a significant generalized disuse osteopenia. The right femur demonstrates an oblique fracture at the junction of the middle and distal thirds with a displaced butterfly fragment. There is mild angular deformity at the fracture site. There appears to be significant chronic degenerative arthritis at the knee and some old deformity, possibly consistent with a previous healed fracture in the supracondylar region. IMPRESSION: Complex comminuted fracture, right femur in this patient with a history of previous stroke, hemiparalysis and very frail osteopenic metabolic state in general. I have discussed with the patient and her treatment options. She is certainly at risk for perioperative problems with an anesthetic and surgery. However, I think it will be difficult to manage and control the femur fracture in a nonsurgical fashion, particularly given her spasticity and confusion. She is certainly at risk for problems [place] [address] CONSULTATION Name: DONNIECORA LOVELACEERNESTO Bah Room #: 441-P [facility] IN M.R.#: [id number] Admission: 12/20/20 Attend Phys: Kareen Guadarrama MD Discharge: Date of : 55 Report #: [id number] fixation given her marked osteopenia. Despite these potential problems and risks, her , who is her DPOA, feels the best approach would be to go ahead with surgery for repair using plate and screw fixation. We will plan to proceed with surgery whenever scheduling and medical clearance will allow. <ELECTRONICALLY SIGNED> By: Gabe Webber MD 12/21/20 1536 0948 1036 Gabe Webber MD /nt
--- NOTE | 2020-12-22 01:46 | NUR ---
PER REPORT,PT WAS SUPPOSED TO GET BLOOD TRANSFUSION.UNFORTUNATELY,THERE WERE NO ORDERS NOTED FOR THE BLOOD.AIRPLANE PILOT PHOTOGRAMMETRY ON DUTY NOTIFIED,SHE STATED TO CHECK HER H&H AND GO FROM THERE.LAB NOTIFIED TO DRAW BLOOD.PT LYING ON HER BED WITH HER EYES CLOSED.DRSG TO HER R HIP C/D/I.ICE PACK APPLIED TO THE SITE.HEMOVAC NOTED WITH SEROUS SANGUINUEOUS DRAINAGE.IVF AND IV ABX ADMINISTERED PER ORDER.CALL LIGHT WITHIN REACH.
[2020-12-22 03:57] LABS: MCH 28.8 pg (26.0-34.0); MCHC 32.7 g/dL (28.0-37.0); RBC 2.09 mil/uL (4.20-5.00); RDW 15.3 % (10.5-14.5); WBC 12.1 thou/uL (4.0-11.0)
[2020-12-22 04:01] LABS: HEMATOCRIT 18.4 % (37.0-47.0)
[2020-12-22 04:06] LABS: CREATININE 0.7 mg/dL (0.6-1.0); POTASSIUM 4.5 mmol/L (3.5-5.1)
[2020-12-22 06:30] VITALS: BP 106/56; BP 110/62
[2020-12-22 07:14] VITALS: BP 105/54
--- NOTE | 2020-12-22 09:54 | O ---
[facility] [place] [address] OPERATIVE REPORT Name: NICKOLAS FIELDS Room #: 441-P ADM IN .R.#: [id number] Admission: 12/20/20 Attend Phys: Kareen Guadarrama MD Discharge: Date of : 55 Report #: [id number] THIS REPORT FOR: cc: Roel Cuevas MD, Paul Piezas MD Clymer, David J. MD ~ DATE OF SERVICE: 12/21/2020 PREOPERATIVE DIAGNOSIS: Complex comminuted fracture, right femur. POSTOPERATIVE DIAGNOSIS: Complex comminuted fracture, right femur. PROCEDURE: Open reduction and internal fixation, right femur fracture. SURGEON: Gabe Webber M.D. INDICATIONS: This very frail osteopenic 65-year-old female had a previous stroke with right hemiparesis and significant cognitive dysfunction. She is nonambulatory and has significant flexion contractures at the right hip and knee. She fell from her wheelchair recently and has a moderately comminuted fracture of the femur at about the junction of the middle and distal thirds. I have discussed with the patient and her family treatment options and they have elected to go ahead with surgical repair. Clearly, she will not return to ambulation, but we are hoping for stability, so that transfers will be more feasible and the patient comfort will be improved. The patient and family understand that she is certainly at significant risk for perioperative problems given her age, stroke and debilitated state. DESCRIPTION OF PROCEDURE: The patient was taken to the operating room where she was placed under general anesthetic. She was turned to the left lateral decubitus position. The right hip, thigh, knee and leg were meticulously prepped and draped. A longitudinal skin incision was made down the lateral thigh extending through fascia and muscle to expose the distal femur. The bone was found to be markedly osteopenic and there was moderate comminution at the fracture site. Reduction was difficult, but a satisfactory alignment was established. A Vega and Nephew lateral distal locking femoral plate was selected. This is approximately a 12-hole plate. It was positioned appropriately and checked with C-arm guidance. Multiple locking screws were placed throughout the shaft and into the distal femur with C-arm guidance. This resulted in acceptable, but rather tenuous fixation given her marked osteopenia. C-arm views revealed acceptable alignment of the fracture and position of the plate and screws. There was moderate oozing throughout the procedure and total blood loss was in the range of 600-700 mL. She received some plasma expanders and is awaiting a transfusion at the time of this dictation. A single Hemovac was left deep in the wound. The vastus lateralis fascia was closed with #[address] [address] OPERATIVE REPORT Name: NICKOLAS FIELDS Room #: 441-P [facility] IN M.R.#: [id number] Admission: 12/20/20 Attend Phys: Kareen Guadarrama MD Discharge: Date of : 55 Report #: [id number] Vicryl sutures. The fascia larissa was closed with running 0 Monocryl. The subcutaneous tissues were also closed with 0 Monocryl. The skin was closed with skin justina. A sterile dressing was applied. The patient was awakened and returned to the recovery room in satisfactory condition. <ELECTRONICALLY SIGNED> By: Gabe Webber MD 12/22/20 0954 1533 1642 Gabe Webber MD /nt
[2020-12-22 11:22] VITALS: BP 110/54; BP 111/56; BP 121/65
[2020-12-22 17:16] LABS: MCH 28.1 pg (26.0-34.0); MCHC 33.9 g/dL (28.0-37.0); RBC 3.26 mil/uL (4.20-5.00); RDW 15.6 % (10.5-14.5); WBC 9.7 thou/uL (4.0-11.0)
[2020-12-22 17:19] LABS: MCV 82.8 fL (80.0-100.0)
[2020-12-22 17:20] LABS: HEMOGLOBIN 9.2 gm/dL (12.0-15.0)
[2020-12-22 19:16] VITALS: BP 128/51
--- NOTE | 2020-12-22 19:25 | NUR ---
PATIENT HAS RECIEVED 2 UNITS BLOOD. CBC RECHECKED. HEMOVAC DCD, HAS AQUACEL AND BENIGNO TO RIGHT HIP. DID BEDSIDE SCREENING PROTOCOL PATIENT PASSED NO S/S DYSPHAGIA/ASPIRATION. STATES EATS REGULAR FOOD AND SIPS LIQUIDS AT HOME. CALLED DR STAFFORD WHO GAVE ORDER FOR REGULAR DIET.
[2020-12-23 04:03] VITALS: BP 137/55
--- NOTE | 2020-12-23 05:23 | NUR ---
PT ALERT TO SELF. CONFUSED AND FORGETFUL.R HIP NOTED TO BE BLEEDING, THE WHOLE DRESSING WAS CHANGED,SOME KERLEX ADDED OVER THE AQUACEL BEFORE WRAPPING WITH BENIGNO. ALL STAPPLES NOTED TO BE INTACT ON THE INCISION.BLOODY DRAINAGE, NO SIGNS OF INFECTION.RLE WITH EDEMA. SCD TO LLE. PEARSON IN PLACE, DARK YELLOW URINE OUTPUT NOTED. PT GIVEN TYLENOL THIS AM FOR TEMP OF 100.4 AX.PT IS ON ROOM AIR, NO S/SX OF DISTRESS.FENTANYL GIVEN X 1 AFTER DRSG CHANGE.PT WITH CONTRACTURES KELLE TO RUE AND RLE.REPOSTIONIING PROVIDED WHICH PT DOES NOT TOLERATE VERY WELL.REST OF HER SKIN IS INTACT.WILL CONTINUE WITH POC.
[2020-12-23 07:15] VITALS: BP 125/57
[2020-12-23 07:56] LABS: HEMATOCRIT 22.1 % (37.0-47.0); HEMOGLOBIN 7.4 gm/dL (12.0-15.0); MCHC 33.5 g/dL (28.0-37.0); MCV 83.6 fL (80.0-100.0); RBC 2.64 mil/uL (4.20-5.00); RDW 15.6 % (10.5-14.5); WBC 10.3 thou/uL (4.0-11.0)
[2020-12-23 08:02] LABS: CALCIUM 7.8 mg/dL (8.5-10.1); CREATININE 0.6 mg/dL (0.6-1.0); POTASSIUM 3.4 mmol/L (3.5-5.1)
--- NOTE | 2020-12-23 11:19 | NUR ---
After talking with pts spouse, pt receives 2 cartons bolus feeds via PEG per day plus eating regular foods. Will place order of jevity 1.5 bid. Once IVF are discontinued, please start 180ml water flush every 6 hr.
--- NOTE | 2020-12-23 14:41 | NUR ---
PT ADMITTED RELATED TO RIGHT FEMORAL FX. CM REVEIWED CHART AND SPOKE WITH CARE TEAM. CM ATTEMPTED PC TO PT'S ROOM WITH NO ANSWER. CM CALLED PT'S SPOUSE JOHAN. HE INDICATED THAT THEY RESIDE IN A HOUSE WITH 1 STEP TO ENTER AND NO STEPS INSIDE. HE INDICATED THAT PT HAD USED A HOSPITAL BED AND A WC TO ASSIST WITH MOBILITY FOOD ASSEMBLER COMMISSARY KITCHEN. HE INDICATED THAT HE HAD PROVIDED PHYSICAL LIFT ASSIST FOR TRANSFERS FOOD ASSEMBLER COMMISSARY KITCHEN. HE STATED THAT THEY HAD [facility] HH IN THE PAST BUT DOESN'T THINK THAY TAKE PT'S INSIRANCE ANY LONGER. HE IS RECEPTIVE TO HH SERVICES UPON DC. HE DIDN'T INDICATE A PREFERENCE FOR PROVIDERS ONE IN NETWORK WITH INSURANCE AND IN SERVICE ARE WILL BE FOUND. CM TO FOLLOW INDICATED WITH POSSIBLE DC HOME TOMORROW.
[2020-12-23 16:00] VITALS: BP 132/64
[2020-12-23 19:32] VITALS: BP 151/62
--- NOTE | 2020-12-23 20:03 | NUR ---
Patient temperature was 99.9 on evening, Tylenol given, night nurse is aware. BP slightly elevated, night nurse is aware. Denied pain, no nausea or vomitting. Bed rest.
--- NOTE | 2020-12-24 02:06 | NUR ---
ASSUME PT CARE FROM SHERRON (DAY RN). PT IS ALERT TO SELF AND UNABLE TO VOICE NEEDS. WHEN ASKED IF SHE IS IN PAIN SHE DOESN'T RESPOND. PT HAS A LEFT AC WITH NS RUNNING AT 80. ENCOURAGED PT TO DRINK FLUIDS. PT IS A Q2 TURN. HOURLY ROUNDING DONE ON PT. WILL CONTINUE TO MONITOR.
[2020-12-24 03:41] VITALS: BP 146/64
[2020-12-24 05:55] LABS: MCH 28.5 pg (26.0-34.0); MCHC 33.7 g/dL (28.0-37.0); MCV 84.4 fL (80.0-100.0); RBC 2.26 mil/uL (4.20-5.00); RDW 15.8 % (10.5-14.5); WBC 9.9 thou/uL (4.0-11.0)
[2020-12-24 06:13] LABS: HEMATOCRIT 19.1 % (37.0-47.0); HEMOGLOBIN 6.4 gm/dL (12.0-15.0)
[2020-12-24 06:20] LABS: CALCIUM 7.9 mg/dL (8.5-10.1); CREATININE 0.5 mg/dL (0.6-1.0)
[2020-12-24 07:05] VITALS: BP 145/67
[2020-12-24 09:36] VITALS: BP 145/67
[2020-12-24 15:11] VITALS: BP 145/67
--- NOTE | 2020-12-24 15:51 | NUR ---
PT RUNNING A LOW GRADE TEMP TODAY AND STILL NEEDS TO GET A UNIT OF BLOOD. NURSING TO NOTIFY DR STAFFORD OF THE ABOVE WELL SPOUSE PREFERING FOR DC TOMORROW. [facility] ACCEPTS PT'S INSURANCE & CAN ACCEPT PT ONCE MEDICALLY STABLE.
[2020-12-24 16:20] VITALS: BP 129/70
--- NOTE | 2020-12-24 16:35 | NUR ---
PT AOX4 WITH INTERMITTENT FORGETFULNESS AND NOTED LETHARGY. PT REPORTS PAIN IN RIGHT HIP. PT RECEIVING PRN IV FENTANYL Q4HR. PT DENIES SOB WHILE ON ROOM AIR. PT TOLERATING PO INTAKE OF FLUIDS AND REGULAR DIET WITHOUT ISSUE. PT DENIES NAUSEA. PT VOIDING PER CATHETER, INCONTINENT OF BOWEL. PT RESTING IN BED THROUGHOUT SHIFT, FREQUENT REPOSITIONING ENCOURAGED, PT REFUSING SOME TURNS DUE TO PAIN WITH MOVEMENT AND COMFORT WITH REST. COORDINATED CARE WITH ATTENDING PROVIDER, DISCHARGE ANTICIPATED AFTER BLOOD TRANSFUSED. BLOOD BANK NOTIFIED MULTIPLE TIMES THROUGHOUT MORNING AND AFTERNOON, CALL BACK RECEIVED APPROX 1400. DPOA/ REMAINS AT BEDSIDE, PLAN OF CARE REVIEWED. DPOA/ REQUESTING TO HAVE PT DISCHARGE TOMORROW MORNING DUE TO AVAILABILTY. COORDINATED CARE WITH CASE MANAGEMENT, AWARE OF DPOA/ PREFERENCES. ENCOURAGED PT TO NOTIFY STAFF FOR ALL NEEDS, CALL LIGHT WITHIN REACH, BED ALARM ON, BED LOCKED IN LOWEST POSITION, FREQUENT MONITORING WILL CONTINUE.
[2020-12-24 19:45] VITALS: BP 118/59; BP 121/62; BP 124/64
[2020-12-25] VITALS (7 sets, daily range): BP systolic 103–157; BP diastolic 48–88
[2020-12-25 03:05] LABS: HEMATOCRIT 23.7 % (37.0-47.0); HEMOGLOBIN 7.8 gm/dL (12.0-15.0); MCH 28.5 pg (26.0-34.0); MCHC 33.1 g/dL (28.0-37.0); RBC 2.75 mil/uL (4.20-5.00); RDW 15.3 % (10.5-14.5); WBC 7.7 thou/uL (4.0-11.0)
--- NOTE | 2020-12-25 04:25 | NUR ---
PT GOT A UNIT OF BLOOD THIS SHIFT.HGB UP TO 7.8 AFTER H&H DONE.PT REPOSITIONED WHILE IN BED,REF SOME TURNS.DRSG TO HER HIP INTACT.PT RESTING ON HER BED AT THIS TIME.CALL LIGHT WITHIN REACH.
--- NOTE | 2020-12-25 17:25 | NUR ---
X-RAY COMPLETED & NOW READY FOR DC. PT WILL NEED AN AMBULANCE RIDE HOME DUE TO NON-WT BEARING & PAINFUL HIP. DC SENIOR JAVA SOFTWARE ENGINEER WILL ARRANGE AMB. [facility] HAS BEEN ARRANGED TO FOLLOW FOR HH SERVICES BY DC SENIOR JAVA SOFTWARE ENGINEER. SPOUSE IN ROOM & WILL BE NOTIFIED OF AMBULANCE TRANSPORT TIME.
--- NOTE | 2020-12-25 17:33 | NUR ---
PT DISCHARGING TODAY TO HOME WITH [facility] FAXED DC ORDERS/SUMMARY SPOKE WITH YAYO IN INTAKE SHE RECEIVED ORDERS AND WILL NOTIFY PT TIME OF VISITS.
--- NOTE | 2020-12-25 18:42 | NUR ---
[facility] HERE TO TRANSPORT PATIENT VIA GURNEY AT THIS TIME. DISCHARGE PAPERS REVIEWED WITH SIGNED AND COPY IN CHART. IV ACSESS DCD LILI DCD. PT W/O PAIN OR RESP DISTRESS AT DISCHARGE.
== END 2020-12-25 19:07 | disposition home health service (06) | DRG 480 ==
LOC: ER 15:28 → 4S 20:08 → EROBS 20:08 → 4S 21:25
PROVIDERS: Nurse Practitioner Family; Orthopaedic Surgery; Physician Assistant; ADMIT Hospitalist; ATTEND Hospitalist
PROC: 0QS804Z Reposition Right Femoral Shaft with Internal Fixation Device, Open Approach (ICD-10-PCS; principal; 2020-12-21)
PROC: 30233N1 Transfusion of Nonautologous Red Blood Cells into Peripheral Vein, Percutaneous Approach (ICD-10-PCS; 2020-12-22)
DX: S72.8X1A Other fracture of right femur, initial encounter for closed fracture (principal); R65.11 Systemic inflammatory response syndrome (SIRS) of non-infectious origin with acute organ dysfunction; I69.351 Hemiplegia and hemiparesis following cerebral infarction affecting right dominant side; E87.2 Acidosis; D62 Acute posthemorrhagic anemia; E46 Unspecified protein-calorie malnutrition; Z68.1 Body mass index [BMI] 19.9 or less, adult; F32.9 Major depressive disorder, single episode, unspecified; R13.10 Dysphagia, unspecified; K21.9 Gastro-esophageal reflux disease without esophagitis; I10 Essential (primary) hypertension; W18.39XA Other fall on same level, initial encounter; D72.829 Elevated white blood cell count, unspecified; Z20.822 Contact with and (suspected) exposure to COVID-19; Z79.82 Long term (current) use of aspirin; Z79.899 Other long term (current) drug therapy; Z88.8 Allergy status to other drugs, medicaments and biological substances; Y93.89 Activity, other specified; Y92.89 Other specified places as the place of occurrence of the external cause; Y99.8 Other external cause status
CPT/HCPCS: 10195; 50101; 50386; 50417; 51412; 56525; 56526; 57103; 57957; 57958; 58495; 58496; 58497; 58498; 58499; 58500; 58501; 62110; 62900; 70005

== ENCOUNTER 2021-05-02 02:18 | Inpatient (IN) | payer OTHER ==
[2021-05-02] VITALS (8 sets, daily range): BP systolic 84–137; BP diastolic 43–70
[~2021-05-02] VITALS: Ht 154.9 cm; Wt 40.8 kg
[~2021-05-02 02:18] MED LIST changes: +ACETAMINOPHEN500 MG PO; +PROAIR HFA8.5 GM INH
[2021-05-02 02:49] LABS: ABSOLUTE NEUTROPHILS 7.6 thou/uL (1.4-8.2); BASOPHILS 0.3 % (0.0-2.0); EOSINOPHILS 0.1 % (0.0-3.0); HEMATOCRIT 36.8 % (37.0-47.0); HEMOGLOBIN 12.2 gm/dL (12.0-15.0); LYMPHOCYTES 5.8 % (24.0-44.0); MCH 28.2 pg (26.0-34.0); MCV 85.3 fL (80.0-100.0); MONOCYTES 0.4 % (1.0-8.0); PLATELET COUNT 244 thou/uL (150-400); POLYS 93.4 % (36.0-66.0); RBC 4.32 mil/uL (4.20-5.00); WBC 8.1 thou/uL (4.0-11.0)
[2021-05-02 03:02] LABS: CALCIUM 9.9 mg/dL (8.5-10.1); POTASSIUM 4.9 mmol/L (3.5-5.1)
[2021-05-02 03:14] LABS: TOTAL BILIRUBIN 1.9 mg/dL (0.2-1.0); TOTAL PROTEIN 8.2 g/dL (6.4-8.2)
[2021-05-02 03:17] LABS: URINE BILIRUBIN NEGATIVE (Negative); URINE BLOOD 3+ (Negative); URINE CLARITY CLOUDY; URINE COLOR YELLOW; URINE GLUCOSE-RANDOM* NEGATIVE (Negative); URINE KETONES NEGATIVE (Negative); URINE PROTEIN (DIPSTICK) 3+ (Negative); URINE SPECIFIC GRAVITY >= 1.030 (1.005-1.035)
[2021-05-02 03:18] LABS: BACTERIA-REFLEX >30 Many /HPF (None Seen); CRYSTALS None Seen /LPF (None Seen); FINE GRANULAR CASTS 4-10 Moderate /LPF (None Seen); HYALINE CASTS 4-10 Moderate /LPF (None Seen); MUCUS 4-6 Moderate strn/LPF (None Seen); SQUAMOUS >10 Many /LPF (0-3); URINE LEUKOCYTES-REFLEX 3+ (Negative); URINE NITRITE-REFLEX POSITIVE (Negative); URINE RBC >20 Many /HPF (NONE SEEN); URINE UROBILINOGEN 0.2 E.U./dl (0.2-1.0); URINE WBC-REFLEX >25 Many /HPF (0-5); WBC CLUMPS Packed (None Seen)
[2021-05-02] MEDS ORDERED: GABAPENTIN100 MG PO (03:43)
[2021-05-02] MEDS ORDERED: FLOMAX0.4 MG PO (03:43)
[2021-05-02] MEDS ORDERED: FAMOTIDINE 20 M20 MG PO (03:45)
[2021-05-02] MEDS ORDERED: KEPPRA100 MG/1 M (03:46)
[2021-05-02] MEDS ORDERED: KEPPRA100 MG/1 M PO (05:10)
--- NOTE | 2021-05-02 15:04 | NUR ---
PT ADMITED FROM ER. ADMISSION HX AND ASSESSMENT COMPLETED WITH THE HELP FROM THE . PT ORIENTED TO SELF. HAS SURGICAL INCISION ON THE RIGHT HIP WITH HERBIE IN PLACE. PER THE PT IS A TOTAL CARE. CONTRACTED IN ALL FOUR EXTREMITY. CRITICAL BLOOD CULTURE REPORTED TO DR. KAUFFMAN. DR. RHODES CONSULTED. SR ON TELE. WILL CONTINUE WITH PLAN OF CARE.
--- NOTE | 2021-05-02 15:16 | NUR ---
Pt alert to self. Assessment completed w/ spouse Carlton via; telephone [phone], additonal number [phone]. Pt currently resides in 1 l w/ 1 entry step w/ spouse ADL's: Maximum assistance required CAREGIVER: Spouse and additional family members DME: Hopsital bed, W/C, [facility] HH/SNF/REHAB/DIALYSIS/HOSPICE: HH HX W/ [facility] AND CURRENTLY W/ [facility] D/C PATIENT ON 02/11/2021 which was confirmed w/ Krystin natural sciences professor [phone] Transportation: Pt will need stretcher arranged upon transitioning back home Additional Info: Pt spouse is agreeable to PATI eval/assess. will send referral on this day to [facility] fax [phone] D/C plan: Home w/ Stretcher & HH arranged
--- NOTE | 2021-05-02 16:42 | NUR ---
CL PLACED LT IJ IN ER FOR SEPSIS.
--- NOTE | 2021-05-02 21:18 | NUR ---
UPON INITIAL ASSESSMENT PATIENT NOTED HYPOXIC WITH OXYGEN SATURATION AT 86% ON ROOM AIR. HOB ELEVATED WITH SUPPLEMENTAL OXYGEN VIA NASAL CANNULA SHOWED SATURATIONS CLIMB INTO HIGH 90'S-100%. PROVIDER ALERTED TO BREATHING WELL PATIENTS LETHARGY. ORDERS GIVEN FOR NURSE TO CONTINUE TO ASSESS BREATHING, LIMITED MOVEMENT DUE TO CONDITION OF PATIENTS FEMUR FX, AND TO USE PEG TUBE FOR MEDICATIONS WHILE AVOIDING PO WHILE PATIENT REMAINS CONFUSED AND LETHARGIC.
[2021-05-03] VITALS (8 sets, daily range): BP systolic 74–115; BP diastolic 45–64
[2021-05-03 05:23] LABS: CREATININE 0.8 mg/dL (0.6-1.0)
[2021-05-03 05:32] LABS: CALCIUM 7.6 mg/dL (8.5-10.1); POTASSIUM 2.9 mmol/L (3.5-5.1)
--- NOTE | 2021-05-03 15:52 | NUR ---
PT ALERT TO ORIENTED X1. HAD CYSTOSCOPY WITH STENTS PLACEMENT. HAS SOFT BP. PROVIDER AWARE. NPO FOR NOW UNTIL EVALUATED BY SPEECH ON WEDNESDAY. SEEN BY ORTHOPEDIC WILL EVALUATE ON WEDNESDAY. BEDREST FOR NOW WITH MINIMAL TURNS. WILL CONTINUE WITH PLAN OF CARE.
[2021-05-04] VITALS: BP 116/59; BP 98/65
[2021-05-04 04:30] VITALS: BP 91/61
[2021-05-04 07:50] VITALS: BP 106/69
--- NOTE | 2021-05-04 08:41 | O ---
[facility] [place] [address] OPERATIVE REPORT Name: NICKOLAS FIELDS Room #: 207-P ADM IN M.R.#: [id number] Admission: 05/02/21 Attend Phys: Roel Galvez MD Discharge: Date of : 55 Report #: [id number] THIS REPORT FOR: cc: Roel Cuevas MD, Paul Piezas MD Park, Gerald Y. MD ~ DOC #: [id number] Raj Mckeon MD DATE OF SERVICE: 05/03/2021 PREOPERATIVE DIAGNOSES: Bilateral kidney stones, urinary tract infection. POSTOPERATIVE DIAGNOSES: Bilateral kidney stones, urinary tract infection. PROCEDURES: Cystoscopy, bilateral retrograde pyelograms, bilateral stent placement. SURGEON: Raj Mckeon MD ANESTHETIC: General. ESTIMATED BLOOD LOSS: None. COMPLICATIONS: None. FINDINGS: Extremely difficult stent placement due to the patient's severe contractures. I could not place her in lithotomy position. I was able to get bilateral stents in with flexible scope. Stone was not removed. It will need to be treated at a later date once infection cleared. DRAINS: Bilateral 7 x 24 stents, 20-Italian Pappas. Pappas can be removed when clinically appropriate since the patient is managed with diapers at home. Stents will stay in place until she can be treated for her stone disease. Had multiple previous surgeries at [facility] where she is well established with them. INDICATION: A 65-year-old female who came to the hospital with decreased appetite and fevers. CT revealed bilateral kidney stones and bilateral ureteral stones. She is noted to have a UTI. She has sepsis. It is felt best to go ahead and place bilateral stents. We would consider removing the stones if possible, but more likely explained to the family that we would just place stents and treat her stones later. Risks and complications explained and wanted to proceed.. DESCRIPTION OF PROCEDURE: After informed consent was obtained, the patient was taken to the operating suite where she was placed on the cystoscopy bed. Her left lower extremity was able to be placed in a stirrup. However, the right one [facility] [address] [place] [address] OPERATIVE REPORT Name: DONNIENICKOLAS Room #: 207-P [facility] IN M.R.#: [id number] Admission: 05/02/21 Attend Phys: Roel Galvez MD Discharge: Date of : 55 Report #: [id number] was completely contracted and could not be extended or rotated. Therefore, the right lower extremity was kept in a cross-legged position. We were able to safely stabilize her extremity on the cystoscopy bed. The area of her genitalia was prepped and draped in standard fashion. A rigid scope was attempted to be placed per urethra, but due to her lower extremity being in the way could not manipulate the scope to get into the bladder. Therefore, a flexible cystoscope was used. This was inserted into the bladder. There was noted to be quite a bit of debris in the bladder. The right orifice was identified. A wire was placed up it and over the wire ureteral catheter was advanced into the kidney. A gentle retrograde was done. It showed very mild hydronephrosis. The orifice was actually quite challenging to find due to her positioning, but fortunately we were able to get it up there. Over the wire, a 7 x 24 stent was placed. She had a good curl up in the kidney down the bladder. The left side was more challenging to find, but fortunately was able to identify it, get a wire through the ureter up into the kidney. A ureteral catheter was placed up there. A gentle retrograde was done. There was actually not real significant hydronephrosis here, but since she has known stone disease in her ureter, it was felt best to still go in and place a stent. Wire was left in place and then over the wire, a 7 x 24 stent was placed. The curl went down her lower pole of her kidney and then through the ureter and then the stent itself had a nice distal curl in the bladder. The scope was withdrawn and a 20-Italian Pappas catheter was inserted. Catheter was irrigated and had some of the debris come out and was draining well. The patient was noted to be in critical condition with hypotension and tachycardia. This was present even prior to beginning the case. The patient was taken to recovery room and will be planned for the anesthesiologist when discussed with the hospitalist about what level of care she will need after surgery. I discussed with the , who is her primary glass cutting machine feeder and after the infection is cleared, she will follow up with the [facility] where she is well established for further stone management. Raj Mckeon MD GYP/NIT <ELECTRONICALLY SIGNED> By: Raj Mckeon MD 05/04/21 0841 1202 1428 Raj Mckeon MD /nt
[2021-05-04 11:45] VITALS: BP 99/66
[2021-05-04 13:45] LABS: HEMATOCRIT 28.2 % (37.0-47.0); MCH 27.3 pg (26.0-34.0); MCHC 32.8 g/dL (28.0-37.0); MCV 83.4 fL (80.0-100.0); RBC 3.38 mil/uL (4.20-5.00); RDW 18.3 % (10.5-14.5); WBC 18.4 thou/uL (4.0-11.0)
[2021-05-04 13:49] LABS: CALCIUM 7.6 mg/dL (8.5-10.1); CREATININE 0.7 mg/dL (0.6-1.0); MAGNESIUM 1.8 mg/dL (1.8-2.4); POTASSIUM 3.6 mmol/L (3.5-5.1)
[2021-05-04 13:50] LABS: HEMOGLOBIN 9.2 gm/dL (12.0-15.0)
--- NOTE | 2021-05-04 14:27 | NUR ---
PT ALERT TO SELF. PAIN NOTED WITH MOVEMENT. PRN PAIN MED GIVEN. AT THE BEDSIDE. UPDATED ON PT'S PROGRESS.
[2021-05-04 15:45] VITALS: BP 85/55
[2021-05-04 20:30] VITALS: BP 106/66
--- NOTE | 2021-05-04 22:16 | NUR ---
NURSE MADE ATTEMPT TO STRAIGHTEN PATIENTS LEFT LEG IN ACCORDANCE WITH PROVIDER ORDER. ALMOST IMMEDIATELY PATIENT SCREAMED OUT IN PAIN AND NURSE CEASED EFFORT.
[2021-05-05 04:45] VITALS: BP 96/63
[2021-05-05 07:50] VITALS: BP 98/59
--- NOTE | 2021-05-05 10:11 | NUR ---
ORDERS RECEIVED FOR PT EVAL AND TREAT. ADMITTED FOR SEPSIS AND UTI. RECENT R FEMUR FRACTURE W/ ORIF. CONCERN FOR STABILITY OF HARDWARE IN R HIP PER NOTES. Pt LIVES W/ WHO IS HER CAREGIVER. Pt IS T[employer] C[employer] AND USES [employer]. Pt HAS CONTRACTURES OF ALL 4 EXTREMITIES, MOST SEVERE IN R LE IT IS TUCKED UP UNDER HER L HIP IN KNEE FLEXION AND HIP INT ROT. WASH CLOTHS IN HER HANDS. ANSWERS QUESTIONS BUT EYES CLOSED THROUGHOUT. Pt DECLINING PT AT THIS TIME; STATED SHE HAS HAD IT BEFORE. ALSO BASED ON CHART REVIEW AND TALKING W/ Pt, Pt APPEARS TO BE AT HER FUNCTIONAL BASELINE SHE IS TOTAL CARE AND [employer]. ACUTE PT TO SIGN OFF.
[2021-05-05 11:55] VITALS: BP 98/66
[2021-05-05 12:20] VITALS: BP 104/66
--- NOTE | 2021-05-05 14:31 | NUR ---
Pt has been npo and no tube feeds since 05/02. ST states currently not alert enough to evaluate for swallow. Recommend Jevity 1.5, 4 cartons bolus per day. Please contact physician to receive order.
--- NOTE | 2021-05-05 17:50 | NUR ---
PT REFUSING TURNS THIS SHIFT. PT SCREAM LOUDLY WHEN TURNS ARE ATTEMPTED. SPOKE WITH DR KAUFFMAN TO ADDRESS TUBE FEEDING. AWAITING ORTHO TO ROUND ON PT TO DETERMINE IF SURGERY NEED FOR RIGHT FEMUR. UPDATED FAMILY AT BEDSIDE.
[2021-05-05 20:45] VITALS: BP 107/70
[2021-05-06] VITALS (14 sets, daily range): BP systolic 75–134; BP diastolic 26–74
--- NOTE | 2021-05-06 02:30 | NUR ---
PT TO SIDE PT YELLING OUT IN PAIN HEART RATE INCREASED TO 120'S PAIN MEDICATION GIVEN, PT REPOSITION FOR COMFORT, PT UNCHANGED, PT BP STABLE, PT APPEARS TO BE QUIET AND RESTING BUT HEART REMAI IN THE 120 "S . NATALI LESTER NOTIFED.
[2021-05-06 07:16] LABS: BASOPHILS 0.4 % (0.0-2.0); EOSINOPHILS 0.3 % (0.0-3.0); HEMATOCRIT 29.5 % (37.0-47.0); HEMOGLOBIN 9.9 gm/dL (12.0-15.0); LYMPHOCYTES 8.2 % (24.0-44.0); MCH 27.6 pg (26.0-34.0); MCHC 33.5 g/dL (28.0-37.0); MCV 82.5 fL (80.0-100.0); PLATELET COUNT 223 thou/uL (150-400); POLYS 83.1 % (36.0-66.0); RBC 3.58 mil/uL (4.20-5.00); RDW 18.1 % (10.5-14.5); WBC 13.2 thou/uL (4.0-11.0)
[2021-05-06 07:33] LABS: ALBUMIN 1.8 g/dL (3.4-5.0); CALCIUM 7.3 mg/dL (8.5-10.1); CREATININE 0.7 mg/dL (0.6-1.0); MAGNESIUM 1.5 mg/dL (1.8-2.4); TOTAL BILIRUBIN 0.9 mg/dL (0.2-1.0); TOTAL PROTEIN 5.6 g/dL (6.4-8.2)
[2021-05-06 07:35] LABS: POTASSIUM 2.3 mmol/L (3.5-5.1)
[2021-05-06 07:41] LABS: APTT 28.8 Seconds (24.5-32.8); INR 1.25; PROTIME 13.5 Seconds (10.5-12.1)
--- NOTE | 2021-05-06 07:47 | NUR ---
Text sent to Dr. Meyers about potassium 2.3, awaiting response.
--- NOTE | 2021-05-06 08:29 | NUR ---
BP:75/48, HR 129, LOWERED THE HEAD OF THE BED, REPORTED TO dR. Guzman.
--- NOTE | 2021-05-06 11:16 | NUR ---
Dr. Mcdonald talked about his concern about the signs of the pain for the patient, asked if the orth was coming to see the patient, the staff talked to somebody who claimed to be the nurse of Dr. Webber.
--- NOTE | 2021-05-06 11:54 | NUR ---
Patient was moaning, BP93/39, axillary temperature 99.4, oxygen 60s, 70s on 2l, nasal cannual increased to 9.5 L, oxygen 90%, patient stopped moaning. Texted to Dr. Meyers about it.
--- NOTE | 2021-05-06 12:18 | NUR ---
Patient denied chest pain, agreed that she did not feel good because she had felt difficult breathing.
[2021-05-06 12:28] LABS: ANISOCYTOSIS 1+; POIKILOCYTOSIS SLIGHT; POLYCHROMASIA SLIGHT
--- NOTE | 2021-05-06 12:50 | NUR ---
Patient axillary temperature 99.3 after tylenol, reported it to Dr. Wahl.
--- NOTE | 2021-05-06 13:38 | NUR ---
After another bonus, BP 89/74, MAP 77, oxygen 93 on 9L, tmeprature 99, HR 104, patient denied pain, lying in bed with eyes open, chest up and down, family bed side. Dr. Wahl has been reported to.
--- NOTE | 2021-05-06 13:47 | NUR ---
Lactic value has been reported to Dr. Meyers at 1:35pm.
--- NOTE | 2021-05-06 15:44 | NUR ---
SW reviewed chart and spoke with nursing and attending physician. STUDENT SERVICES VICE PRESIDENT called earlier today. Pt now on 7L of O2. Pt is on IV abx. Awaiting ortho input regarding right femur fx. Possible surgery/amputation. SW is following to assist as needed with discharge planning.
--- NOTE | 2021-05-06 18:37 | NUR ---
Lactic acid 3.2, compared with 2.6 this afternoon, on nasal cannual 5L, compared with 9L this afternoon, has reported it to Dr. Wahl.
--- NOTE | 2021-05-06 19:56 | NUR ---
Patient kept moaning after pain medication given, the staff checked the vital sign, noticed the oxygen leve was in 70s, 80s, the staff increased nasal cannual oxygen to 9L, patient oxyen level increase to over 90%, patient stopped moaning, opened eyes, talked clearly. saying that she did not have chest pain as the family had assumed, said "yes" when asked "if you had difficulty breathing.", a few minutes later, the charge nurse Denise got into the room, asked the staff questions about vitals signs, labs. The satff told the charge nurse blood culture and urine culture had been sent to the lab as Dr. Du ordered this morning, 1 L bonus had been given, BP had been checked once after the bonus, and the new BP value had been reported to Dr. Meyers and patient's increased oxygen need had been reported to Dr. Wahl, awaiting response. The charge nurse activated the rapid response. the team got to the room and Dr. Meyers got to the room and worked with the staff on the patient.
[2021-05-07] VITALS (40 sets, daily range): BP systolic 82–202; BP diastolic 38–164
[2021-05-07 00:35] LABS: BE(vivo) -11.7 mmol/L (-2 to +3); HCO3 13.3 mmol/L (22.0-26.0); PCO2 27.2 mmHg (35.0-45.0); sO2 99.5 % (92.0-98.0)
[2021-05-07 00:36] LABS: pH 7.306 (7.360-7.450)
--- NOTE | 2021-05-07 00:42 | NUR ---
ASSUMED CARE FROM DAY SHIFT PT RESTING IN BED RESP 28 PT MOANING AND SAYING IM IN PAIN ,02 83 % ON 4L 02 INCREASED TO 8L SAT INCREASED TO 99 % WITH POOR CONTACT , HEART RATE 125. FAMILY REQUESTED CT SCAN , PER DR HEMPHILL NEURO NOTE STATES NEURO STAUS UNCHANGED , BUT OKAY TO HAVE CT SCAN OF HEAD IF OK IF ORTHO FELT THAT IT WAS OKAY. CALLED PLACED TO [facility] TALKED WITH CORONER TECHNICIAN KIMBERLY SHORT CORONER TECHNICIAN, EXPLAINED SITUATION , AND DESCISON WAS DECIDED TO HOLD OFF ON CT OF HEAD. CALLED JOHAN @ [phone] HEMPHILL PROGRESS NOTED AND RECOMENDATIONS AND THAT I HAD TALKED WITH ORTH NATALI SHORT. WAS IN AGREEDMENT THAT HIS WAS IN TOO MUCH PAIN AND ALSO FELT THAT CT SCAN,SHOULD NOT BE DONE. PAIN MEDICATION AND HS MEDICATION PT REPOSITIONED FOR COMFORT .YET PT CONITNUE TO MOANING AND CRY OUT IN PAIN. CALLED PLACED TO [facility] FOR PAIN MEDICATION DUE IV FENANTLY THAT WAS GIVEN 2 HOURS BEFORE HAD NOT HELPED. MORPHINE 2MG IV GIVEN PT RESP INCREASED AND SAT 84% BUT UNABLE TO OBTAINED A STEADY AND ACCUATE READING SHOWING HEART 40 WHEN CARDIAC MONITIOR SHOWS HEART 136,DUE TO PT POOR CIRULATION. RAPID RESPONSE CALLED THEN RESP CODE BLUE CALLED ... JOHAN CALLED AND NOITIFED OF CHANGE IN STATUS.
[2021-05-07 04:19] LABS: HEMATOCRIT 25.6 % (37.0-47.0); HEMOGLOBIN 8.3 gm/dL (12.0-15.0); MCH 27.1 pg (26.0-34.0); MCHC 32.5 g/dL (28.0-37.0); MCV 83.6 fL (80.0-100.0); RBC 3.07 mil/uL (4.20-5.00); RDW 18.5 % (10.5-14.5); WBC 24.8 thou/uL (4.0-11.0)
[2021-05-07 04:23] LABS: CALCIUM 6.9 mg/dL (8.5-10.1); CREATININE 0.7 mg/dL (0.6-1.0)
[2021-05-07 04:31] LABS: POTASSIUM 3.5 mmol/L (3.5-5.1)
[2021-05-07 05:24] LABS: BE(vivo) -9.4 mmol/L (-2 to +3); HCO3 14.4 mmol/L (22.0-26.0); PO2 75.3 mmHg (80.0-100.0); pH 7.381 (7.360-7.450); sO2 95.2 % (92.0-98.0)
[2021-05-07 05:25] LABS: PCO2 24.9 mmHg (35.0-45.0)
[2021-05-07 08:02] LABS: APTT 29.4 Seconds (24.5-32.8); D-DIMER 4.1 ug/mLFEU (0.19-0.50); INR 1.3
--- NOTE | 2021-05-07 12:15 | NUR ---
Spoke to Dr. Webber on phone at approximately 0830, Dr. Webber stated that surgery was moved to 05/08 at 0730 due to scheduling. He requested a follow up call and update on pt status, since pt was now intubated in ICU. Dr. Meyers rounded on pt at 0845 and at 1030 had meeting with pt's regarding pt surgery and status. After meeting with , Dr. Meyers and decided to postpone surgery given recent decline. Dr. Webber called at 1034 and updated on decision. Pt's daughters at bedside at approximately 1130. Will continue to monitor pt.
--- NOTE | 2021-05-07 13:37 | HC ---
[facility] [place] [address] CONSULTATION Name: NICKOLAS FIELDS Room #: 250-P ADM IN M.R.#: [id number] Admission: 05/02/21 Attend Phys: Roel Galvez MD Discharge: Date of : 55 Report #: [id number] THIS REPORT FOR: cc: Roel Cuevas MD, Paul Piezas MD Clymer, David J. MD ~ DOC #: [id number] Gabe Webber MD DATE OF SERVICE: 05/06/2021 CHIEF COMPLAINT: Fracture nonunion, right femur. HISTORY OF PRESENT ILLNESS: This very frail, debilitated 65-year-old female has history of stroke and dementia and is essentially bedridden with family care at home. She was admitted here 3 months ago after a fall at [facility] resulted in a complex comminuted right femur fracture. After debating various treatment options, we elected to go ahead with surgical repair using a long lateral femoral plate even though she is quite debilitated and a non-ambulator, her who is providing all of her care at home, felt this would be helpful in physical care and pain management. Following her release from the hospital, she was lost to my followup and I have not seen her back over the past several months. Her states they have been caring for her at home and trying to manage as best they can. However, I note that the skin justina have never been removed despite I believe some visiting nursing care in that timeframe. In addition, she has had further problems in positioning and controlling the right lower extremity and gradually it has become extremely externally rotated with marked flexion of the knee, such that the right foot tends now to be positioned behind the left knee flat on the bed. This obviously creates difficulty with regard to positioning and movement and the patient comfort. Despite these significant physical problems, they have been managing at home in a fashion, they felt was adequate, although with some ongoing patient discomfort recently she became more ill and was admitted to the hospital for urosepsis related to kidney stones. At the time of my evaluation, her old surgical wound is well healed, but the skin justina are still in place. The right hip is extremely externally rotated with the right flexed knee position such that the right foot is behind the left knee on the bed. She is uncomfortable with any attempted movement. She is at this point, a noncommunicative with me and seems quite debilitated and confused, bordering unresponsive despite this impression, her notes that she is at other times more responsive and in the past, she was able to be moved to a wheelchair such that he could take her outside and enjoy weather or scenery. While she has not been able to do that over the past 3 months, she is hopeful that he could regain that level of mobility and comfort. [address] [address] CONSULTATION Name: NICKOLAS FIELDS Room #: 250-P ADM IN M.R.#: [id number] Admission: 05/02/21 Attend Phys: Roel Galvez MD Discharge: Date of : 55 Report #: [id number] Her current x-rays reveal complete loss of fixation regarding the previously placed femoral plate and screws. 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 I have discussed this at some length with the patient's and their daughter. We have reviewed a variety of treatment options. I have explained that we could simply remove the failed fixation or we could try to reapply a new plate and screws or switch to an intramedullary sheila. However, I am uncertain that we would achieve a clear bony union and I am uncertain if we would really achieve much improvement in her quality of life or ability for nursing care. On the other hand, I think above-knee amputation would be a simpler option and might allow more reliable outcome. Obviously, she is a non-ambulator and so we are trying to achieve pain control and a more appropriate nursing care. I think the patient's and daughter have already come to the decision that an above-knee amputation seems to be the only most reasonable option at this point, there are advocating for going ahead with that and would like to proceed whenever scheduling will allow. I think this is a reasonable approach, but note that she is certainly at risk for perioperative problems given her many other general medical issues and her current urosepsis. Nevertheless, I think this option is probably the best approach for her ongoing palliative care and nursing care at home, which is their hope. Given this, we will try to proceed with planning for scheduling for a right above-knee amputation sometime over the coming few days if or scheduling will allow. MD BETINA Mai/JANA <ELECTRONICALLY SIGNED> By: Gabe Webber MD 05/07/21 1337 [id number] [id number] Gabe Webber MD /nt
[2021-05-07 13:48] LABS: BE(vivo) -5.6 mmol/L (-2 to +3); HCO3 17.8 mmol/L (22.0-26.0); PCO2 27.3 mmHg (35.0-45.0); PO2 101.1 mmHg (80.0-100.0); pH 7.431 (7.360-7.450); sO2 97.9 % (92.0-98.0)
--- NOTE | 2021-05-07 14:39 | 2DMMODE ---
[address] [address] 2 D/M-MODE ECHOCARDIOGRAM Name: NICKOLAS FIELDS Room #: 250-P ADM IN M.R.#: [id number] Admission: 05/02/21 Attend Phys: Roel Galvez MD Discharge: Date of : 55 Report #: [id number] THIS REPORT FOR: cc: Roel Cuevas MD, Paul Piezas MD Lammoglia, Francisco J. MD ~ APPROVED REPORT Study performed: 05/07/2021 13:47:22 EXAM: Comprehensive 2D, Doppler, and color-flow Echocardiogram Patient Location: ICU Room #: 250 Status: routine BSA: 1.46 HR: 110 bpm BP: 108/71 mmHg Rhythm: Tachycardia Other Information Study Quality: Technically Difficult Technically limited study due to post operative dressings, patient on ventilator, inability to position patient. Indications Congestive Heart Failure Tachycardia 2D Dimensions IVSd: 5.90 (7-11mm) LVOT Diam: 18.54 (18-24mm) LVDd: 35.12 mm PWd: 5.63 (7-11mm) Ascending Ao: 30.35 (22-36mm) LVDs: 23.61 (25-40mm) Left Atrium: 26.86 (27-40mm) Aortic Root: 31.08 mm IVC: 20.00 mm Aortic Valve AoV Peak Joseph.: 0.96 m/s AO Peak Gr.: 3.69 mmHg LVOT Max P.99 mmHg LVOT Max V: 0.71 m/s GIL Vmax: 1.98 cm2 Pulmonary Valve PV Peak Joseph.: 0.67 m/s PV Peak Gr.: 1.77 mmHg [facility] [address] [place] [address] 2 D/M-MODE ECHOCARDIOGRAM Name: NICKOLAS FIELDS Room #: [facility] IN [facility].#: [id number] Admission: 05/02/21 Attend Phys: Roel Galvez MD Discharge: Date of : 55 Report #: [id number] Tricuspid Valve TR Peak Joseph.: 2.99 m/s TR Peak Gr.: 35.75 mmHg PA Pressure: 46.00 mmHg Left Ventricle The left ventricle is normal size. There is normal left ventricular wall thickness. The left ventricular systolic function is normal. The left ventricular ejection fraction is within the normal range. LVEF is 55-60%. Grade I - abnormal relaxation pattern. Right Ventricle Right ventricle is dilated. Right ventricle is hypokinetic. Atria Left atrium is at the upper limits of normal. Right atrium is dilated. Aortic Valve The aortic valve is normal in structure. No aortic regurgitation is present. There is no aortic valvular stenosis. Mitral Valve The mitral valve is normal in structure. Mild mitral regurgitation. No evidence of mitral valve stenosis. Tricuspid Valve The tricuspid valve is normal in structure. There is mild to moderate tricuspid regurgitation.Estimated PAP 46 mmHg. There is moderate pulmonary hypertension. Pulmonic Valve The pulmonary valve is normal in structure. Trace pulmonic regurgitation. Great Vessels The aortic root is normal in size. IVC is dilated and collapses <50% with inspiration. Pericardium There is no pericardial effusion. <Conclusion> The left ventricle is normal size. [facility] [address] [place] [address] 2 D/M-MODE ECHOCARDIOGRAM Name: NICKOLAS FIELDS Room #: 250-P [facility] IN .R.#: [id number] Admission: 05/02/21 Attend Phys: Roel Galvez MD Discharge: Date of : 55 Report #: [id number] There is normal left ventricular wall thickness. LVEF is 55-60%. Right ventricle is dilated. Right ventricle is hypokinetic. Left atrium is at the upper limits of normal. Right atrium is dilated. The aortic valve is normal in structure. The mitral valve is normal in structure. Mild mitral regurgitation. The tricuspid valve is normal in structure. There is mild to moderate tricuspid regurgitation.Estimated PAP 46 mmHg. There is moderate pulmonary hypertension. The pulmonary valve is normal in structure. Trace pulmonic regurgitation. The aortic root is normal in size. There is no pericardial effusion. <ELECTRONICALLY SIGNED> By: Jorge Cruz MD 05/07/21 [id number] [id number] Jorge Cruz MD /INF
--- NOTE | 2021-05-07 21:29 | NUR ---
Patient spouse, Carlton, to bedside at 1920 this evening. Discussed patient status and plan of care. Left at 1945. Will continue to monitor.
[2021-05-08] VITALS (96 sets, daily range): BP systolic 64–165; BP diastolic 28–94
[2021-05-08 04:45] LABS: HEMATOCRIT 21.7 % (37.0-47.0); HEMOGLOBIN 7.3 gm/dL (12.0-15.0); MCH 27.7 pg (26.0-34.0); MCHC 33.4 g/dL (28.0-37.0); MCV 82.9 fL (80.0-100.0); RBC 2.62 mil/uL (4.20-5.00); RDW 18.7 % (10.5-14.5); WBC 24.1 thou/uL (4.0-11.0)
[2021-05-08 05:00] LABS: ALBUMIN 1.2 g/dL (3.4-5.0); CALCIUM 6.8 mg/dL (8.5-10.1); CREATININE 0.6 mg/dL (0.6-1.0); PHOSPHORUS 1.1 mg/dL (2.5-4.9)
[2021-05-08 05:02] LABS: POTASSIUM 2.9 mmol/L (3.5-5.1)
[2021-05-08 05:09] LABS: BE(vivo) -6.6 mmol/L (-2 to +3); HCO3 16.5 mmol/L (22.0-26.0); PCO2 25.8 mmHg (35.0-45.0); PO2 104.5 mmHg (80.0-100.0); pH 7.425 (7.360-7.450)
--- NOTE | 2021-05-08 14:16 | HC ---
[facility] [place] [address] CONSULTATION Name: NICKOLAS FIELDS Room #: 245-P ADM IN M.R.#: [id number] Admission: 05/02/21 Attend Phys: Roel Galvez MD Discharge: Date of : 55 Report #: [id number] THIS REPORT FOR: cc: Roel Cuevas MD, Paul Piezas MD Khosla, Parveen K. MD ~ DOC #: [id number] Tigre Donohue MD DATE OF SERVICE: 05/04/2021 HISTORY OF PRESENT ILLNESS: A 65-year-old female patient who is unable to provide any reliable history. I called the patient's and tried to get much history from him. He keeps telling me to look at the records, which I did. Unfortunately, all the records are not here. I reviewed the record from 2015 and looks like she was seen by Dr. Neff, a neurosurgeon at that time with intracerebral bleed. From the record as well as from the CT scan of that time, it was right-sided bleed, but the patient looks like herniated at that time and subsequently I do not have all the records because they have been pushed whatever history I can get from the , it looks like tracheostomy has to put in, but according to the , the patient has been right hemiplegic. Nurses also has noticed that the patient has been right hemiplegic. She has multiple other issues, looks like she has a femur fracture, she has an infection. She has a history of seizure disorder, but looks like seizures does not happen if she keeps taking her medications. She has seen neurologist, but I am not sure from the where does she go now if she goes to a neurologist or not. He says that her mentation deteriorates when she has infection, but then it becomes better. He also says that her mentation had deteriorated, but it is becoming better now. PAST MEDICAL HISTORY: Positive for seizure and looks like a pretty severe intracerebral hemorrhage with what looks like herniation at that time. FAMILY HISTORY: Unremarkable. SOCIAL HISTORY: She lives with the and looks like he has to help her with every day to day activities. PHYSICAL EXAMINATION: Limited. She will not open her eyes, but she will talk and she will move the left arm. Right leg is in very unusual position. I talked to the nurse and made her aware of it and asked them to talk to barratte operator about that. Rest of the neurological examination was almost impossible that she will not even open her eyes and squeeze shut when I tried to do that and I reviewed other notes and looks like she has Proteus infection. IMPRESSION AND PLAN: This patient has a right hemiparesis and from all indication it looks like she came close to herniation or herniated when she had [address] [address] CONSULTATION Name: NICKOLAS FIELDS Room #: 245-P ADM IN M.R.#: [id number] Admission: 05/02/21 Attend Phys: Roel Galvez MD Discharge: Date of : 55 Report #: [id number] right cerebral bleed. Right cerebral bleed will not cause a right hemiplegia and that occurred because of probably infarction caused by herniation. She is stable. She usually does not get any seizures, but does become encephalopathic when the infection occurred. Quality of the life looks very poor. Since she is not having any seizure and in fact not having any change in mentation, I will not do any change in the medication, but it will be desirable to do a noncontrast CT of the head to make sure there are no changes or any late sequela of hydrocephalus, but I am not sure whether she is capable of going there or not and I will talk to barratte operator and other consultants because she is having a lot of pain in the hip and hip is in very unusual position and I hate to move her in this condition, still I have an opportunity to talk until orthopedic can evaluate her. I spent more than 50 minutes of time taking care of this patient today and majority was spent counseling and coordinating including reviewing her extensive workup, imaging studies and records in the past. MD RIKKI Woods/ROB/RUPERT <ELECTRONICALLY SIGNED> By: Tigre Donohue MD 05/08/21 1416 [id number] Tigre Donohue MD /nt
[2021-05-09] VITALS (66 sets, daily range): BP systolic 84–147; BP diastolic 50–91
[2021-05-09 04:45] LABS: BE(vivo) -7.6 mmol/L (-2 to +3); HCO3 16.6 mmol/L (22.0-26.0); PCO2 28.7 mmHg (35.0-45.0)
[2021-05-09 04:47] LABS: PO2 48.1 mmHg (80.0-100.0)
[2021-05-09 05:15] LABS: HEMOGLOBIN 7.1 gm/dL (12.0-15.0); MCH 26.7 pg (26.0-34.0); MCHC 32.3 g/dL (28.0-37.0); MCV 82.7 fL (80.0-100.0); RBC 2.66 mil/uL (4.20-5.00); RDW 19.4 % (10.5-14.5); WBC 25.1 thou/uL (4.0-11.0)
[2021-05-09 05:33] LABS: CALCIUM 7.1 mg/dL (8.5-10.1); CREATININE 0.6 mg/dL (0.6-1.0); POTASSIUM 3.5 mmol/L (3.5-5.1)
--- NOTE | 2021-05-09 05:41 | NUR ---
PT IS ARROUSABLE TO PAINFUL STIMULI. SHE BECOMES TACHYPENIC WITH REPOSITIONING AND STIMULI. PRN MORPHINE GIVEN FOR APPARENT PAIN. Q2H TURNS TO PREVENT SKIN BREAKDOWN. TF VIA PEG TUBE; PT TOLERATING TF WELL. TITRATED LEVOPHED OFF MAP >60. AFEBRILE. PROGRESSING SLOWLY TOWARD POC GOALS.
--- NOTE | 2021-05-09 11:42 | NUR ---
Chart review, discussed during los and am rounds. She remains on ventilator, nutritional support per peg tube as ordered by MD. No anticipated dc over the weekend. Reinier visited with spouse collin at bedside. he voiced that if she needs hh they want to use ramya zamudio , physical therapy is great.
--- NOTE | 2021-05-09 18:32 | NUR ---
ASSESSMENT CHARTED. PT ARROUSABLE TO PAINFUL STIMULI. TACHYPNEIC WITH MOVEMENT. PRN PAIN MED GIVEN. TOLERATING TUBE FEEDING WELL. AND DAUGHTER UPDATED ON PT'S PROGRESS.
[2021-05-09 20:06] LABS: SYPHILIS AB Non Reactive (Non Reactive)
[2021-05-10] VITALS (61 sets, daily range): BP systolic 93–236; BP diastolic 55–205
[2021-05-10 04:00] LABS: HEMATOCRIT 20.7 % (37.0-47.0); HEMOGLOBIN 7.1 gm/dL (12.0-15.0); MCH 28.1 pg (26.0-34.0); MCHC 34.1 g/dL (28.0-37.0); MCV 82.3 fL (80.0-100.0); RBC 2.51 mil/uL (4.20-5.00); RDW 19.3 % (10.5-14.5); WBC 21.7 thou/uL (4.0-11.0)
[2021-05-10 04:10] LABS: CALCIUM 7.5 mg/dL (8.5-10.1); CREATININE 0.8 mg/dL (0.6-1.0)
[2021-05-10 04:14] LABS: POTASSIUM 4.5 mmol/L (3.5-5.1)
--- NOTE | 2021-05-10 05:03 | NUR ---
ASSESSMENT DOCUMENTED.PT RESTING IN NO ACUTE DISTRESS AT THIS TIME.AFEBRILE.VSS.REMAINS INTUBATED W/O SEDATION.PT HAS INTERMITENT EPISODES OF AGITATION AFTER BEING REPOSITIONED.PT BECOMES TACHYPNEIC WITH ACTIVITIES ALONG WITH TACHYCARDIA.PAIN MEDS GIVEN PER ORDERS WITH SOME PAIN RELIEF.NO SIGNIFICANT CHANGES NOTED OVER THE NOC.LILI DD CLOUDY ,YELLOW URINE.WILL CONT W/POC.
[2021-05-10 13:35] LABS: BE(vivo) -4.6 mmol/L (-2 to +3); HCO3 18.9 mmol/L (22.0-26.0); PCO2 28.1 mmHg (35.0-45.0); PO2 159.8 mmHg (80.0-100.0); pH 7.446 (7.360-7.450); sO2 99.2 % (92.0-98.0)
--- NOTE | 2021-05-10 16:04 | NUR ---
PT VERY RESTLESS THIS AM. TACHYPNEIC NOTED WITH REPOSITIONING. PRN PAIN MED GIVEN WITH PARTIAL RELIEF. ORDERS GIVEN TO HOLD TUBE FEEDING BUT CONTINUE WITH WATER FLUSHES. RT TREATMENT PROVIDED ORDERED. FAMILY UPDATED ON PT'S PROGRESS AND PLAN OF CARE.
[2021-05-11] VITALS (24 sets, daily range): BP systolic 123–153; BP diastolic 67–84
[2021-05-11 04:57] LABS: CREATININE 0.7 mg/dL (0.6-1.0); POTASSIUM 4.5 mmol/L (3.5-5.1)
[2021-05-11 05:02] LABS: CALCIUM 7.4 mg/dL (8.5-10.1)
--- NOTE | 2021-05-11 11:18 | NUR ---
ASSUMED PATIENT CARE AT 0700. PATIENT OF DR. VITALE, DISCUSSED TF ON HOLD, HTN, EDEMA AND PAIN CONTROL. ORDER PLACED FOR IV LASIX. DR. VITALE REQUESTS THAT TF BE DISCUSSED IN ROUNDS, OK TO RESTART IF DR. HOROWITZ IS IN AGREEMENT. NO NEW ORDERS FOR PAIN GIVEN AT THIS TIME. ALSO DISCUSSED REDNESS AND DRAINAGE AROUND PEG WITH DR. VITALE. WILL CONTINUE TO CLEAN THE SITE AND CHANGE DRESSING WHEN SOILED. WILL CONTINUE TO MONITOR.
[2021-05-12] VITALS (25 sets, daily range): BP systolic 121–146; BP diastolic 65–85
--- NOTE | 2021-05-12 01:33 | NUR ---
This RN put patients tube feedings on hold at midnight, for possible surgery in the morning. CHG bath given as well. Will continue to monitor.
[2021-05-12 06:06] LABS: HEMATOCRIT 20.2 % (37.0-47.0); HEMOGLOBIN 6.9 gm/dL (12.0-15.0); MCH 27.7 pg (26.0-34.0); MCHC 33.9 g/dL (28.0-37.0); MCV 81.7 fL (80.0-100.0); RBC 2.48 mil/uL (4.20-5.00); RDW 19.2 % (10.5-14.5)
[2021-05-12 06:10] LABS: CALCIUM 7.8 mg/dL (8.5-10.1); CREATININE 0.8 mg/dL (0.6-1.0); MAGNESIUM 1.8 mg/dL (1.8-2.4); POTASSIUM 4.1 mmol/L (3.5-5.1)
--- NOTE | 2021-05-12 07:06 | NUR ---
This RN spoke with Dr. Ricci at 0655 regarding patients low Hgb and Hmct. Orders received. Will continue to monitor.
--- NOTE | 2021-05-12 09:48 | NUR ---
DR. RANGEL AT BEDSIDE AT 0948. DISCUSSED AKA SURGERY WITH PATIENT'S . STATED THAT SURGERY LIKELY WILL NOT HAPPEN TILL WEDNESDAY OR WEDNESDAY DUE TO SCHEDULING. FAMILY WISHES TO PROCEED AT THIS TIME.
--- NOTE | 2021-05-12 12:00 | NUR ---
Chart review. discussed during los and am rounds. she cont to required intubation and T.F nutritional support. Possible will have surgery on wednesday or of this week. New order dr chong consult. Spouse visits at bedside and noted she opens her eyes. will cont following as needed for dc needs.
[2021-05-12 15:08] LABS: HEMATOCRIT 25.4 % (37.0-47.0); HEMOGLOBIN 8.7 gm/dL (12.0-15.0)
[2021-05-13] VITALS (24 sets, daily range): BP systolic 115–141; BP diastolic 62–94
[2021-05-13 04:28] LABS: HEMATOCRIT 26.8 % (37.0-47.0); HEMOGLOBIN 8.9 gm/dL (12.0-15.0); MCHC 33.2 g/dL (28.0-37.0); MCV 84.4 fL (80.0-100.0); RBC 3.18 mil/uL (4.20-5.00); RDW 18.5 % (10.5-14.5)
[2021-05-13 04:38] LABS: CALCIUM 7.7 mg/dL (8.5-10.1); CREATININE 0.8 mg/dL (0.6-1.0); POTASSIUM 3.7 mmol/L (3.5-5.1)
--- NOTE | 2021-05-13 05:57 | NUR ---
PATIENT REMAINS INTUBATED. TF AT GOAL. BM X2.
--- NOTE | 2021-05-13 15:28 | NUR ---
ASSUMED PATIENT CARE AT 0700. DAUGHTER AND AT BEDSIDE. PER NOTE, PLAN FOR AKA SURGERY ON 05/15. WILL CONTINUE TO MONITOR.
[2021-05-14] VITALS (20 sets, daily range): BP systolic 102–141; BP diastolic 55–76
[2021-05-14 04:29] LABS: HCO3 26.7 mmol/L (22.0-26.0); PCO2 33.2 mmHg (35.0-45.0); PO2 92.3 mmHg (80.0-100.0); pH 7.524 (7.360-7.450); sO2 97.8 % (92.0-98.0)
[2021-05-14 05:25] LABS: HEMATOCRIT 25.5 % (37.0-47.0); HEMOGLOBIN 8.5 gm/dL (12.0-15.0); MCH 28.5 pg (26.0-34.0); MCHC 33.3 g/dL (28.0-37.0); MCV 85.4 fL (80.0-100.0); RBC 2.99 mil/uL (4.20-5.00); WBC 28.1 thou/uL (4.0-11.0)
[2021-05-14 05:39] LABS: CALCIUM 7.7 mg/dL (8.5-10.1); CREATININE 0.6 mg/dL (0.6-1.0)
[2021-05-14 06:07] LABS: POTASSIUM 2.6 mmol/L (3.5-5.1)
--- NOTE | 2021-05-14 08:50 | HC ---
[facility] [place] [address] CONSULTATION Name: NICKOLAS FIELDS Room #: 245-P ADM IN M.R.#: [id number] Admission: 05/02/21 Attend Phys: Roel Galvez MD Discharge: Date of : 55 Report #: [id number] THIS REPORT FOR: cc: Roel Cuevas MD, Paul Piezas MD VanDenBerghe,Parker Shetty MD ~ DOC #: [id number] Parker Doan MD ORTHOPEDIC CONSULTATION CHIEF COMPLAINT: Right leg pain. HISTORY OF PRESENT ILLNESS: The patient is a pleasant 65-year-old female with complicated medical history. The patient has undergone an open reduction and internal fixation of a comminuted femur fracture by my partner, Dr. Gabe Webber earlier this year. She has a history of CVA with residual right hemiparesis, dysphagia and seizure disorder. She is nonambulatory and is cared for by her spouse. Recently, she developed fevers as well as loss of appetite and nausea and vomiting along with chest and abdominal pain. She was admitted through the [facility] for urosepsis. PAST MEDICAL HISTORY: Significant for CVA, urosepsis, subarachnoid hemorrhage, UTI, dehydration and femur fracture. ALLERGIES: LEVOFLOXACIN. MEDICATIONS: Please see current MAR. SOCIAL HISTORY: The patient resides at home with her , is nonambulatory. Denies alcohol or tobacco use. PHYSICAL EXAMINATION: GENERAL: The patient is an elderly, frail-appearing female who is able to minimally respond to our questions. MUSCULOSKELETAL: She does report tenderness over the right thigh and her leg is in an externally rotated position underneath her. [place] are in place over her incision. Mild swelling about the thigh is noted. Compartments are soft. No obvious signs of skin breakdown are noted on the remaining portion of the extremity. IMAGING STUDIES: Radiographs reveal a comminuted femoral shaft fracture with a long locking plate that has lost proximal fixation. LABORATORY DATA: Reviewed. [address] [address] CONSULTATION Name: NICKOLAS FIELDS Niurka Room #: 245-P [facility] IN [facility].#: [id number] Admission: 05/02/21 Attend Phys: Roel Galvez MD Discharge: Date of : 55 Report #: [id number] IMPRESSION: 1. Urosepsis. 2. History of cerebrovascular accident with right hemiparesis, nonambulatory. 3. Dysphagia with history of percutaneous endoscopic gastrostomy tube placement. 4. Seizure disorder. 5. Right femur fracture, status post open reduction and internal fixation in 11/2020. PLAN: Nursing reports the patient is going to the operating room today for urolithiasis removal. The patient appears that she will need potentially several days to stabilize from medical standpoint and from orthopedic standpoint, one could consider revision open reduction and internal fixation or due to her functional status, one may consider above-knee amputation. Her residual proximal femur is quite shortened, this would leave her with a shorter stump, but may ease in her care and ability to transfer as well. We will discuss further care with Dr. Webber and we will allow her urosepsis to stabilize and plan orthopedic intervention earlier in the week. MD RUIZ PateV/AMIRA/EDGARDO <ELECTRONICALLY SIGNED> By: Parker Doan MD 05/14/21 0850 [id number] 0845 Parker Doan MD /nt
--- NOTE | 2021-05-14 12:15 | NUR ---
Spouse having questions and concerns regarding surgery tomorrow. rn answered question, he continued to have more questions and requested answers from physicians. Dr. Ravi paged. Dr. Webber's office notified and all questions from family answered to satisfaction. family notified he will be present to speak to them between 1300 and 1400. family declined speaking with him since all questions answered and virtual office assistant notified. Dr. Yi notified on rounds, then spoke with family. Physicians present to speak with spouse and daughter to satisfaction. surgical consent signed signed per family request.
[2021-05-14 13:37] LABS: APTT 22.4 Seconds (24.5-32.8); INR 1.23; PROTIME 13.3 Seconds (10.5-12.1)
--- NOTE | 2021-05-14 14:36 | NUR ---
Discussed during los and am rounds. Dr chong has visited with spouse and her daughters. Plan for surgery on and then will see how things going. If end up needing hospice, family 1st choice would be home with hospice, if she does not do well after surgery. Family wants to see how she does and possible come of the vent, cont. treatment. will cont following as needed for dc needs.
--- NOTE | 2021-05-14 18:41 | NUR ---
sr/st, tolerating vent, tube feeding and water boluses, adequate urine output, flexiseal with 300cc brown liquid stool. resting quietly after tylenol given. unable to draw blood from TLC port(s), activase administered and dwelling at this time. progressing toward am surgery.
[2021-05-15] VITALS (43 sets, daily range): BP systolic 69–126; BP diastolic 30–67
[2021-05-15 05:07] LABS: BE(vivo) 2.4 mmol/L (-2 to +3); HCO3 25.4 mmol/L (22.0-26.0); PCO2 32.2 mmHg (35.0-45.0); PO2 90.1 mmHg (80.0-100.0); pH 7.514 (7.360-7.450); sO2 97.6 % (92.0-98.0)
[2021-05-15 05:16] LABS: HEMATOCRIT 22.7 % (37.0-47.0); HEMOGLOBIN 7.5 gm/dL (12.0-15.0); MCH 28.6 pg (26.0-34.0); MCHC 33.2 g/dL (28.0-37.0); RBC 2.63 mil/uL (4.20-5.00); RDW 19.3 % (10.5-14.5); WBC 26.5 thou/uL (4.0-11.0)
[2021-05-15 06:01] LABS: CALCIUM 7.8 mg/dL (8.5-10.1); CREATININE 0.6 mg/dL (0.6-1.0); POTASSIUM 3.6 mmol/L (3.5-5.1)
--- NOTE | 2021-05-15 10:32 | NUR ---
Pt sent to OR at 0858. Dejon ULLOA sent with OR staff to infuse. and two daughters to wait in OR waiting room.
[2021-05-15 11:31] LABS: MCH 27.8 pg (26.0-34.0); MCHC 32.2 g/dL (28.0-37.0); MCV 86.2 fL (80.0-100.0); RBC 1.72 mil/uL (4.20-5.00); RDW 18.9 % (10.5-14.5); WBC 21.2 thou/uL (4.0-11.0)
[2021-05-15 11:35] LABS: HEMATOCRIT 14.8 % (37.0-47.0); HEMOGLOBIN 4.8 gm/dL (12.0-15.0)
--- NOTE | 2021-05-15 11:39 | NUR ---
During ICU recovery pt BP dropped to MAP of 44. Fluids started, Levo started, CBC sent. Hgb resulted at 4.8. (Previously 7.5 this AM - no PRBC given during surgery). Per Dr. Ravi give 2 units of PRBC.
--- NOTE | 2021-05-15 12:59 | NUR ---
now back at bedside, RN explained wait time and need for multiple units of blood. Pt BP currently 99/41, awaiting second unit of blood from [facility].
[2021-05-15 15:37] LABS: BE(vivo) -0.4 mmol/L (-2 to +3); HCO3 22.6 mmol/L (22.0-26.0); PCO2 31.5 mmHg (35.0-45.0); PO2 65.4 mmHg (80.0-100.0); pH 7.473 (7.360-7.450); sO2 94.3 % (92.0-98.0)
[2021-05-15 15:50] LABS: HEMATOCRIT 30.7 % (37.0-47.0); MCH 27.8 pg (26.0-34.0); MCHC 32.5 g/dL (28.0-37.0); MCV 85.6 fL (80.0-100.0); RBC 3.59 mil/uL (4.20-5.00); RDW 17.7 % (10.5-14.5); WBC 33.6 thou/uL (4.0-11.0)
[2021-05-16] VITALS (58 sets, daily range): BP systolic 90–132; BP diastolic 50–80
[2021-05-16 04:50] LABS: BE(vivo) 0.3 mmol/L (-2 to +3); HCO3 23.5 mmol/L (22.0-26.0); PCO2 32.4 mmHg (35.0-45.0); PO2 78.8 mmHg (80.0-100.0); pH 7.478 (7.360-7.450); sO2 96.5 % (92.0-98.0)
[2021-05-16 05:01] LABS: HEMATOCRIT 25.8 % (37.0-47.0); HEMOGLOBIN 8.6 gm/dL (12.0-15.0); MCH 28.8 pg (26.0-34.0); MCHC 33.5 g/dL (28.0-37.0); RDW 17.5 % (10.5-14.5); WBC 26.6 thou/uL (4.0-11.0)
[2021-05-16 05:42] LABS: CALCIUM 7.3 mg/dL (8.5-10.1); CREATININE 0.7 mg/dL (0.6-1.0); POTASSIUM 4.3 mmol/L (3.5-5.1)
--- NOTE | 2021-05-16 05:49 | NUR ---
PT MOVES L ARM SPONTANEOUSLY, R ARM WILL TIGHTEN AND TREMOR WHEN TOUCHED. OPENS EYES TO CARES AND DOES TRACK RN WITH EYES OCCASIONALLY. RAISES L ARM TO MOUTH WHEN ORAL CARES ARE BEING DONE. TOLERATING TF, PEG DRESSING CHANGED, DUE TO BEING SATURATED. UNABLE TO TITRATE LEVO OFF, FMS, PEARSON REMAIN IN PLACE. PT NOT PROGRESSING TOWARD GOALS
--- NOTE | 2021-05-16 08:37 | O ---
[facility] [place] [address] OPERATIVE REPORT Name: NICKOLAS FIELDS Room #: 245-P ADM IN M.R.#: [id number] Admission: 05/02/21 Attend Phys: Roel Galvez MD Discharge: Date of : 55 Report #: [id number] THIS REPORT FOR: cc: Roel Cuevas MD, Paul Piezas MD Clymer, David J. MD ~ DOC #: [id number] Gabe Webber MD DATE OF SERVICE: 05/15/2021 PREOPERATIVE DIAGNOSIS: Failed right femur fracture with chronic pain and instability. POSTOPERATIVE DIAGNOSIS: Failed right femur fracture with chronic pain and instability. PROCEDURE: Right above-knee amputation. SURGEON: Gabe Webber MD INDICATIONS: This 65-year-old female has many chronic problems including a brain injury with chronic cognitive dysfunction. She has been a nonambulator for quite some time. Family has been caring for her at home. She fell a number of months ago with a right femur fracture, which was treated with a long plate. Unfortunately, this failed to unite and the screws and plate have become loosen, and she has significant instability and deformity with ongoing pain. She has also had progression in her neurologic and general medical problems and has been admitted to the hospital with urosepsis. She also has pulmonary insufficiency and has been recently coded and intubated. She remains intubated and on ventilator support. Family still hopes that they can get her home for end of life care and feels she is uncomfortable with her femur fracture and deformity and instability make nursing care difficult. Given this, they have elected to go ahead with above-knee amputation in hopes that this will benefit her in terms of level of pain and ease of nursing care. They understand that this is a palliative measure, and she is certainly at great risk for all sorts of problems and complications in the perioperative period. Nevertheless, they feel this is the best option for the patient and hope for enough improvement in stability that she could eventually be discharged home under their care. DESCRIPTION OF PROCEDURE: The patient was taken to the operating room where she was placed under general anesthesia. The right lower extremity was meticulously prepped and draped. A long skin incision was made through the old surgical scar and then continued in a fish-mouth shaped fashion at the distal thigh just above the patella. The incision was carried through deeper tissues to expose the femur and the plate. The screws were removed and the plate was removed. The femur was found to be very, very osteopenic with really little if any potential [address] [address] OPERATIVE REPORT Name: NICKOLAS FIELSD Room #: 245-P [facility] IN M.R.#: [id number] Admission: 05/02/21 Attend Phys: Roel Galvez MD Discharge: Date of : 55 Report #: [id number] for healing. There was still some comminution in the mid and upper aspect, but these seem to be fairly solidly stable with scar and soft tissue. The more distal aspect of the femur was transected using simply a rongeur, creating a more rounded smooth end at about the distal third. The soft tissue dissection was then extended through the remaining soft tissues, and the amputated limb was passed off the field. The neurologic and vascular structures were identified and clamped and tied. Smaller vessels were handled with cautery. The wound was copiously irrigated. Satisfactory hemostasis was established. Two Hemovac drains were left in the wound exiting through a separate stab incision. The muscle and fascial layer was closed with multiple 0 Monocryl sutures. The more superficial tissues were also closed with 0 Monocryl. The skin was closed with skin justina. A bulky gently compressive sterile dressing was applied. The patient was awakened and returned back to the intensive care unit in good condition. MD BETINA Mai/JOAQUIN/EDGARDO <ELECTRONICALLY SIGNED> By: Gabe Webber MD 05/16/21 0837 0943 1224 Gabe Webber MD /nt
--- NOTE | 2021-05-16 08:55 | NUR ---
WOUND CARE CONSULT; REMAINS ON VENT, ASSESS WOUND L SIDE ABD, NEAR PEG, APPEARS BUMPER OF PEG MAY HAVE CAUSED WOUND, ASSESSED WOUND W/ CLOTH PIECER, FAIRLY LARGE AMT DARK BROWNISH RED DRAINAGE FROM WOUND AND PEG SITE, PER CLOTH PIECER INFORMING HOSPITALIST FOR EVAL F/U PEG PEG WAS NOT DRAINING AT ADMISSION, PROPER PLACEMENT? RECOMMENDATIONS; CLEAN SITE W/ NS OR WOUND CLEANSER, APPLY DRY SPLIT DRAIN GAUZE BID AND PRN AWAITING EVAL OF PEG CLOTH PIECER AWARE
--- NOTE | 2021-05-16 11:07 | NUR ---
Pt bleeding heavily from old PEG site next to current PEG site. Air can be heard with each breath pt takes. TF now on hold. Dr. Ravi at bedside, agrees abdominal CT in order.
--- NOTE | 2021-05-16 11:55 | NUR ---
Dr. Peacock at bedside - agrees STAT CT necessary. Pt and daughter at bedside participating in care.
--- NOTE | 2021-05-16 12:03 | NUR ---
Cont. review.S/P # 1 AKA. Discussed during los and am rounds. Remains vented, nutritional support. Going for CT abd today, related to bleeding coming out of old peg tube site. Daughter and spouse at bedside. No anticipated dc over the weekend. Will cont. following as needed for dc needs.
--- NOTE | 2021-05-16 13:04 | NUR ---
Pt returned from CT - no events. VSS, at bedside.
[2021-05-16 13:31] LABS: URINE BILIRUBIN NEGATIVE (Negative); URINE BLOOD 3+ (Negative); URINE CLARITY CLOUDY; URINE COLOR YELLOW; URINE GLUCOSE-RANDOM* NEGATIVE (Negative); URINE KETONES NEGATIVE (Negative); URINE NITRITE-REFLEX NEGATIVE (Negative); URINE PROTEIN (DIPSTICK) 2+ (Negative); URINE UROBILINOGEN 0.2 E.U./dl (0.2-1.0)
[2021-05-16 13:36] LABS: URINE LEUKOCYTES-REFLEX 2+ (Negative)
[2021-05-16 13:53] LABS: BACTERIA-REFLEX 1-9 Few /HPF (None Seen); CASTS None Seen /LPF (None Seen); CRYSTALS None Seen /LPF (None Seen); SQUAMOUS 0-3 Few /LPF (0-3); TRANSITIONAL EPITHEL CELL 0-3 Few /LPF (None Seen); URINE RBC >20 Many /HPF (NONE SEEN); URINE WBC-REFLEX 6-15 Few /HPF (0-5)
[2021-05-16 14:30] LABS: HEMOGLOBIN 6.9 gm/dL (12.0-15.0)
[2021-05-16 14:32] LABS: HEMATOCRIT 20.8 % (37.0-47.0)
--- NOTE | 2021-05-16 15:06 | NUR ---
Per GI sent new H/H, pt now dropped to 6.9. 1 unit PRBC ordered. Awaiting plan from GI surgery.
--- NOTE | 2021-05-16 17:07 | PATH ---
[facility] [place] [address] PATHOLOGY RPT PROCEDURE Name: ROM SIN Room #: 245-P ADM IN M.R.#: [id number] Admission: 05/02/21 Date of : 55 Discharge: Report #: [id number] Path Case #: [id number] [facility] Accession Number: [id number] . 01 Material submitted: . knee - RIGHT ABOVE KNEE AMPUTATION. Modifiers: right, superior . 01 Clinician provided ICD-10: y . 01 Clinical history: . ABOVE KNEE AMPUTATION (+++) SEVERE RIGHT FEMUR FX SEPSIS,UTI . 02 Diagnosis: Leg, right above knee amputation: - Intraparenchymal hemorrhage present, consistent with the provided history of fracture. - Skin and soft tissue surgical margin viable and unremarkable. - Vessels showing mild to moderate myxoid degeneration. (IUV:nayeli; 05/16/2021) MBR 05/16/2021 1416 Local . 02 Electronically signed: . Cary Dixon MD, Pathologist NPI- [id number] . 01 Gross description: . Received fresh labeled "Rom Sin and right above knee amputation". Received is a right above the knee amputation measuring 44.5 cm from the surgical/fracture site margin to heel and 22.0 cm from heel to big toe. The skin surface is palpable/edematous dela cruz brown. The knee area has multiple scars ranging from 1.0-2.0 centimeters and a lateral previous surgical scar measuring 8.0 cm in length and 0.2 cm in diameter. The femur proximal fracture site is rugged with loose spongy hemorrhagic bone cortex. Sectioning of the anterior and posterior vessels reveals dilation without plaques. Sectioning of the skin reveals edema and no other grossly apparent lesions. The specimen is representatively submitted in cassettes A1 thru A5. A1 - proximal femur fracture site bone marrow A2 - surgical/fracture site margin skin representation (black inked) A3 - posterior vessels (dilated) A4 - anterior vessels and knee skin lesion representation A5 -fracture site bone (decal) ([facility]; 05/15/2021) [facility] 05/15/2021 [address] [place] [address] PATHOLOGY RPT PROCEDURE Name: ROM SIN J Room #: 245-P ADM IN M.R.#: [id number] Admission: 05/02/21 Date of : 55 Discharge: Report #: [id number] Path Case #: [id number] . 02 Pathologist provided ICD-10: S72.91XA . 02 CPT . 979239, [id number] Specimen Comment: A courtesy copy of this report has been sent to [phone], [phone] Specimen Comment: [phone], Specimen Comment: Report sent to ,DR KAUFFMAN / DR TOLEDO Performed at: [address] [facility], [place] [id number] MD Ridge Saini MD Phone: [phone] Performed at: [address] [id number] MD Cary Dixon MD Phone: [phone]
--- NOTE | 2021-05-16 21:37 | NUR ---
call from pt with passcode provided at 2100, asking if the intervention to stop the abd bleeding from old peg site had worked. gave update on vs, no current bleeding from site, and still on bp meds. gave current plan for logging contractor. call from daughter at 2130, passcode provided. daughter very tearful, stating that she was concerned about what was going to happen next. gave same update to daughter. daughter asking what could happen next. educated that this rn can only speak within rn scope of practice, but educated on disease process, current plan to watch for bleeding, watch urine output, optional interventions per dr orders, and monitor bp with hopes to turn levo down or off. this rn will recommend a family meeting, preferably with dr chong to day rn
[2021-05-17] VITALS (43 sets, daily range): BP systolic 104–137; BP diastolic 53–72
[2021-05-17 04:40] LABS: BE(vivo) -4.2 mmol/L (-2 to +3); HCO3 19.2 mmol/L (22.0-26.0); PCO2 28.9 mmHg (35.0-45.0); PO2 75.2 mmHg (80.0-100.0); sO2 95.8 % (92.0-98.0)
[2021-05-17 05:00] LABS: HEMATOCRIT 24.6 % (37.0-47.0); HEMOGLOBIN 8.1 gm/dL (12.0-15.0); MCH 28.6 pg (26.0-34.0); MCHC 32.8 g/dL (28.0-37.0); RBC 2.82 mil/uL (4.20-5.00); RDW 16.7 % (10.5-14.5); WBC 22.5 thou/uL (4.0-11.0)
[2021-05-17 05:04] LABS: CALCIUM 7.1 mg/dL (8.5-10.1); CREATININE 0.6 mg/dL (0.6-1.0); POTASSIUM 3.7 mmol/L (3.5-5.1)
--- NOTE | 2021-05-17 05:51 | NUR ---
PT DOES ROUSE TO VOICE AND NURSING CARES, MOVES LEFT SIDE. ABLE TO TITRATE LEVO OFF, ST ON MONITOR, PAIN MEDS GIVEN FOR CPOT PAIN SCALE. NOTED BRIGHT RED DRAINAGE FROM R AKA SITE, LEG AND ABD ARE EXTREMELY FIRM AND EDEMATOUS, FAVOR MAKER NOTIFIED, HGB IS CURRENTLY STABLE, PLT LOW, WILL CALL ORTHO. MINIMAL BLEEDING NOTED FROM CURRENT PEG SITE, DARK/BLACK; FORMER PEG SITE WITH TAMPANADE WITHOUT BLEEDING. UNABLE TO FLUSH PEG. URINE OUTPUT MINIMALLY ACCEPTABLE.
[2021-05-17 06:15] LABS: ALBUMIN 1.2 g/dL (3.4-5.0); DIRECT BILIRUBIN 0.2 mg/dL (<0.1-0.2); TOTAL PROTEIN 4.2 g/dL (6.4-8.2)
[2021-05-18] VITALS (43 sets, daily range): BP systolic 98–120; BP diastolic 47–63
[2021-05-18 04:23] LABS: BE(vivo) 4.3 mmol/L (-2 to +3); HCO3 27.1 mmol/L (22.0-26.0); PO2 84.7 mmHg (80.0-100.0); pH 7.533 (7.360-7.450); sO2 97.4 % (92.0-98.0)
[2021-05-18 05:19] LABS: RBC 1.92 mil/uL (4.20-5.00)
[2021-05-18 05:21] LABS: CALCIUM 7.2 mg/dL (8.5-10.1); CREATININE 0.5 mg/dL (0.6-1.0); MCH 30.8 pg (26.0-34.0); MCHC 35.6 g/dL (28.0-37.0); MCV 86.6 fL (80.0-100.0)
[2021-05-18 05:33] LABS: HEMATOCRIT 16.7 % (37.0-47.0); HEMOGLOBIN 5.9 gm/dL (12.0-15.0)
[2021-05-18 05:46] LABS: POTASSIUM 2.8 mmol/L (3.5-5.1)
[2021-05-18 06:04] LABS: HEMATOCRIT 16.3 % (37.0-47.0); HEMOGLOBIN 5.6 gm/dL (12.0-15.0)
--- NOTE | 2021-05-18 08:08 | NUR ---
PT MAKING SLOW PROGRESS TOWARD GOALS. URINE OUTPUT VIA PEARSON. URINE ORANGE TINGED AND CLOUDY, SLIGHT POSSIBLE PINKISH TONE THIS MORNING. DISCUSSED WITH DAY RN. ON VENT OVERNIGHT. OCCASIONAL COUGH WITH AND WITHOUT SUCTIONING. FIO2 AT 35 WITHOUT NEED FOR TITRATION. LUNGS COARSE THROUGHOUT.
--- NOTE | 2021-05-18 15:43 | NUR ---
1543- Nurse talked with Dr. Malone and order for paracentesis to be done tomorrow instead of today. Also, hold on tube feeding for today per surgery for possible gastrografin study prior to peg tube use.
--- NOTE | 2021-05-18 16:30 | NUR ---
[id number]- cpap trial RR 25-35 bpm Oxygenation >95% No distress noted with patients breathing. ABG obtained- results and findings were relayed to Dr. Yi, no extubation today.
[2021-05-18 16:38] LABS: BE(vivo) 3.2 mmol/L (-2 to +3); HCO3 25.7 mmol/L (22.0-26.0); PCO2 30.2 mmHg (35.0-45.0); PO2 98.2 mmHg (80.0-100.0); pH 7.547 (7.360-7.450); sO2 98.2 % (92.0-98.0)
[2021-05-18 16:54] LABS: HEMATOCRIT 21.1 % (37.0-47.0); HEMOGLOBIN 7.1 gm/dL (12.0-15.0)
--- NOTE | 2021-05-18 19:46 | NUR ---
Patient progressing towards plan of care as evidenced by cpap trial today, and improved alertness. Nurse informed Dr. Malone of Surgery wishes to perform barrium study prior to use of peg tube, hold off on tube feeding for now. Nurse also expressed that the paracentesis would be done tomorrow, he expressed that was okay. Plan of care is to continue to monitor patient ability to wean off ventilator, and monitor patient temperature as well as labs.
[2021-05-19] VITALS (47 sets, daily range): BP systolic 92–140; BP diastolic 43–70
--- NOTE | 2021-05-19 07:55 | NUR ---
PT CONTINUES TO REQUIRES POTASSIUM REPLACMENT, AM LABS TO DRWAN ONE HOUR AFTER KCL COMPLETES. OPNES EYES, BLINKS, UNABLE TO COMUUNCATE. HELD ALL PO/PER TUBE MEDCIATION, UNTIL BARRIUM STUDY CAN BE COMPLETED, NEEDS A PARACENTESIS TODAY. LASIX AND ALBUMIN WERE HELD R/T LOW POTASSIUM.
[2021-05-19 08:56] LABS: ABSOLUTE RETIC COUNT 0.0075 10^6/uL; HEMATOCRIT 22.5 % (37.0-47.0); HEMOGLOBIN 7.5 gm/dL (12.0-15.0); MCH 29.1 pg (26.0-34.0); MCHC 33.2 g/dL (28.0-37.0); MCV 87.6 fL (80.0-100.0); OBSERVED RETIC COUNT 0.29 % (0.6-2.6); RBC 2.57 mil/uL (4.20-5.00); RDW 15.2 % (10.5-14.5); WBC 12.6 thou/uL (4.0-11.0)
[2021-05-19 09:10] LABS: APTT 27.6 Seconds (24.5-32.8); INR 1.3
[2021-05-19 09:13] LABS: % SATURATION 21 % (20-39); IRON 15 ug/dL (50-170); TIBC 72 ug/dL (250-450)
[2021-05-19 09:14] LABS: CALCIUM 7.6 mg/dL (8.5-10.1); CREATININE 0.5 mg/dL (0.6-1.0); POTASSIUM 3.4 mmol/L (3.5-5.1)
[2021-05-19 09:40] LABS: FOLIC ACID 14.3 ng/mL (8.6-58.9)
[2021-05-19 10:50] LABS: BE(vivo) 5.1 mmol/L (-2 to +3); HCO3 27.8 mmol/L (22.0-26.0); PCO2 33.5 mmHg (35.0-45.0); PO2 115.3 mmHg (80.0-100.0); pH 7.537 (7.360-7.450); sO2 98.6 % (92.0-98.0)
--- NOTE | 2021-05-19 15:27 | NUR ---
WOUND CONSULT; THE PEG TUBE SITE WAS ASSESSED. THE PERIWOUND IS INTACT WITH NO S/S OF ESCORIATION OR INFECTION. THE RN TODAY RE'D ORDERS TO D/C THE HEMOVAC TODAY. AFTER REMOVING THE HEMOVAC THE SITES HAVE NO S/S OF INFECTION. RECOMMENDATIONS; -COVER SITES WITH A FOAM DRESSING, ASSESS FOR BLEEDING OR DRAINAGE BID/PRN. RN PRESENT.
--- NOTE | 2021-05-19 15:31 | NUR ---
Chart review. Discussed during am rounds and los. Cont to require vent. barium study and other procedure/test ordered for today. and family cont to visit. Will cont following as needed for dc needs.
--- NOTE | 2021-05-19 17:45 | NUR ---
ASSUMED CARE OF PT AT 0700. PT AWAKE AND INTUBATED. CPAP TRIAL BY RT. DR MAYS NOTIFIED. SPOKE TO CLOTILDE IN ULTRASOUND AT 1045 REGARDING THE ULTRASOUND GUIDED PARACENTESIS, GI WAS INFORMED OF PARAMETERS IN LEVEL GLASS VIAL FILLER NOTE. DR JEFF AND Mitra RENDON ROUNDED AT 1212 AND DECIDED TO POSTPONE PARACENTESIS UNTIL TOMORROW AM AND TRANSFUSE IF LOWER THEN HEMATOLOGY DETERMINED PARAMETERS. DR RICHARDSON ROUNDED AT 1330 AND CLARIFIED THAT PEG TUBE WAS FUNCTIONAL PER PRIOR STUDY. TUBE FEEDING RESUMED AT 1700. WILL CONTINUE TO MONITOR.
[2021-05-20] VITALS (73 sets, daily range): BP systolic 95–137; BP diastolic 43–74
[2021-05-20 04:36] LABS: HEMOGLOBIN 6.8 gm/dL (12.0-15.0); MCV 87.4 fL (80.0-100.0)
[2021-05-20 04:38] LABS: MCHC 34.4 g/dL (28.0-37.0); RBC 2.27 mil/uL (4.20-5.00); RDW 15.1 % (10.5-14.5); WBC 10.1 thou/uL (4.0-11.0)
[2021-05-20 04:42] LABS: HEMATOCRIT 19.8 % (37.0-47.0)
[2021-05-20 08:10] LABS: CREATININE 0.6 mg/dL (0.6-1.0)
[2021-05-20 08:15] LABS: POTASSIUM 2.7 mmol/L (3.5-5.1)
[2021-05-20 10:33] LABS: HEMATOCRIT 24.7 % (37.0-47.0); HEMOGLOBIN 8.6 gm/dL (12.0-15.0)
[2021-05-20 13:08] LABS: HEMATOLOGY COMMENTS Note: (()); HEMOGLOBIN 7.5 g/dL (11.1-15.9)
[2021-05-20 15:06] LABS: MAGNESIUM 1.8 mg/dL (1.8-2.4)
[2021-05-20 15:08] LABS: POTASSIUM 2.9 mmol/L (3.5-5.1)
[2021-05-20 16:08] LABS: BE(vivo) 12.7 mmol/L (-2 to +3); HCO3 35.5 mmol/L (22.0-26.0); PCO2 37.8 mmHg (35.0-45.0); PO2 138.2 mmHg (80.0-100.0); sO2 99.1 % (92.0-98.0)
--- NOTE | 2021-05-20 19:07 | NUR ---
PT PROGRESSING TOWARDS GOALS. EXTUBATED TODAY. VSS. TOLORATING TUBE FEEDING. IN ROOM ALL DAY AND UPDATED. DR Augusta MAYS CALLED BACK TO CHECK ON PT AT 1820. UPDATE GIVEN. NO ORDERS. 1 UNIT PC TODAY. REPLACING KCL.
[2021-05-21] VITALS (22 sets, daily range): BP systolic 104–151; BP diastolic 53–80
[2021-05-21 05:44] LABS: HEMATOCRIT 28.7 % (37.0-47.0); HEMOGLOBIN 9.6 gm/dL (12.0-15.0); MCH 30.1 pg (26.0-34.0); MCHC 33.6 g/dL (28.0-37.0); MCV 89.7 fL (80.0-100.0); RBC 3.2 mil/uL (4.20-5.00); RDW 14.3 % (10.5-14.5); WBC 10.7 thou/uL (4.0-11.0)
[2021-05-21 05:53] LABS: CALCIUM 8.6 mg/dL (8.5-10.1); CREATININE 0.4 mg/dL (0.6-1.0); POTASSIUM 3.8 mmol/L (3.5-5.1)
--- NOTE | 2021-05-21 09:06 | NUR ---
Chart review. discussed during am rounds. She was extubated yesterday. Cm visited with spouse at bedside, patient resting in bed with eyes closed, o2 per nasal cannula. will cont following as needed for dc needs.
--- NOTE | 2021-05-21 09:51 | NUR ---
Nutrition: When IVFs D/C, if physician deems appropriate to increase water flushes, would rec the addition of beneprotein powder in flushes. (min. 200- 250 mL H20 per packet)
--- NOTE | 2021-05-21 20:09 | NUR ---
PT MOVING TOWARDS GOALS. NOT FOLLOWING COMMANDS BUT WITHDRAWS. + COUGH.
--- NOTE | 2021-05-22 10:30 | NUR ---
Chart review. discussed during los. Will need therapy evals. Possible able to move out of icu today, if bed available. Spouse and family cont to visit.
--- NOTE | 2021-05-22 10:47 | NUR ---
WOUND CARE F/U; SPOUSE AT BS, PT OPENS EYES AT TIMES, PEG TUBE SITES ASSESSED, SCANT DRAINAGE, ULCER NEAR PEG HEALING, NO S/S INFECTION, CLEANSED, DRY DRSG REAPPLIED, SURGEON FOLLOWING W/ WOUND CARE ORDERS TO R AKA RECOMMENDATIONS; CONT DRY GAUZE DRSG TO 2 PEG TUBE SITES, DAILY AND PRN, CONT SURGEON ORDERS TO R [facility] LEAD BUSINESS ANALYST AWARE
[2021-05-22 12:00] VITALS: BP 123/60
[2021-05-22 13:00] VITALS: BP 119/60
[2021-05-22 13:07] VITALS: BP 119/60
--- NOTE | 2021-05-22 13:40 | NUR ---
Report called to [facility]. Pt VSS, abx infusing, TF infusing no issues. Will transfer after IV ABX finish.
--- NOTE | 2021-05-22 18:33 | NUR ---
PATIENT ARRIVED TO AT APPROX. 1445. PATIENT ARRIVED APPEARING ASLEEP; DROWSY. PATIENT IS ON TELEMETRY; SIMUS ANKIT. PATIENT ABLE TO BE AROUSED WITH A STERNAL RUB OR FINGER STICK BUT REMAINS DROWSY. TUBE FEEDING; JEVITY 1.5 AT 40MLS/HR WITH NO ISSUES. FECAL MANAGEMENT SYSTEM IN PLACE; PLACED IN ICU. PEARSON IN PLACE; PLACED IN ICU. PATIENT IS BEING REPOSITIONED Q2HRS AND NEEDED. FAMILY AT BEDSIDE REQUESTING BEDSIDE SUCTION, A DENTIST CONSULTED, AND A SPEECH THERAPIST. PROVIDER NOTIFIED. L IJ SL BUT FLUSHING WELL AND INTACT. Q6 ACCUCHECKS. FALL PRECAUTIONS ON PLACE. CONTINUING FREQUENT MONITORING
[2021-05-23 02:31] LABS: HEMOGLOBIN 8.1 gm/dL (12.0-15.0); MCV 90.4 fL (80.0-100.0)
[2021-05-23 02:33] LABS: HEMATOCRIT 24.6 % (37.0-47.0); MCH 29.9 pg (26.0-34.0); MCHC 33.1 g/dL (28.0-37.0); RBC 2.72 mil/uL (4.20-5.00); RDW 15.3 % (10.5-14.5); WBC 7.9 thou/uL (4.0-11.0)
[2021-05-23 02:40] LABS: ALBUMIN 4.3 g/dL (3.4-5.0); ANION GAP < 0 mmol/L (7-16); BUN 21 mg/dL (7-18); CALCIUM 8.8 mg/dL (8.5-10.1); CHLORIDE 111 mmol/L (98-107); CO2 44 mmol/L (21-32); CREATININE 0.5 mg/dL (0.6-1.0); GLUCOSE 119 mg/dL (74-106); MAGNESIUM 1.7 mg/dL (1.8-2.4); POTASSIUM 3.5 mmol/L (3.5-5.1); SGOT 9 U/L (15-37); SGPT 14 U/L (14-59); SODIUM 154 mmol/L (136-145); TOTAL PROTEIN 6.4 g/dL (6.4-8.2)
[2021-05-23 07:17] VITALS: BP 107/52
--- NOTE | 2021-05-23 09:34 | NUR ---
ADDITIONAL EVAL AND TREAT ORDERS RECEIVED, CHART REVIEWED AND SPOKE WITH DR. MARQUEZ. PATIENT NOT APPROPRIATE FOR ACUTE OT SERVICES SHE IS TOTAL CARE AT HOME AND USES [employer], SIGNED OFF 05/05/21 AND PATIENT IS WITHIN SAME HOSPITAL STAY. REMAINS NOT APPROPRIATE FOR ACUTE OT SERVICES. DR. MARQUEZ WITH VERBAL ORDER IN AGREEMENT AND WILL CANCEL ORDER.
--- NOTE | 2021-05-23 10:07 | NUR ---
ORDERS RECEIVED FOR PT RE-EVALUATION. Pt WAS INTUBATED ON 05/07 AND EXTUBATED ON 05/20. UNDERWENT R AKA ON 05/15 D/T UNSTABLE HARDWARE IN LEG. PRIOR THERAPY NOTE WAS PUT IN ON THIS PATIENT ON 05/05/21. Pt IS TOTAL CARE AT HOME. IS PRIMARY CAREGIVER. [employer] FOR TRANSFERS. HAS CONTRACTURES OF ALL 4 EXTREMITIES. NOT ABLE TO USE HANDS FUNCTIONALLY. COMMUNICATED W/ DR MARQUEZ ABOUT THIS AND HE IS AGREEABLE TO CANCELLING PT ORDERS Pt IS NOT APPROPRIATE FOR ACUTE PT. ALSO COMMUNICATED W/ CM. ACUTE PT TO SIGN OFF.
--- NOTE | 2021-05-23 11:15 | NUR ---
[facility] [place] [facility] [place] her spouse. Cm visited with carlton at bedside. He agrees with dcp of home. They already had DME ( [employer] lift, btx, wheelchair, electric bed with air mattress. in home and use [employer] 1.5 Vivek T.F at home and spoke with dietitian that is ok to use at home for her tube feedings. Carlton stated he will be getting her a Bratten wheelchair that can lay flat to move her from bed to wheelchair, he used to just pick her up before she had the aka surgery. Patient on RA currently, no home o2 needed. Will require transportation home at sc. Call express transportation when ready to sc home, request stretcher [phone]. Fax sc orders to [facility] [employer] # [phone], phone # [phone]
[2021-05-23 14:31] VITALS: BP 97/43
[2021-05-23 15:36] VITALS: BP 92/47
--- NOTE | 2021-05-23 15:40 | NUR ---
ASSUMED PT CARE THIS AM. PT ALERT, AT BEDSIDE. PATIENT HAS AN IV, FLUIDS INFUSING WITHOUT ISSUE. PATIENT HAS TWO PEG TUBES, INFUSING JEVITY AT 40ML/HR. PATIENT REMAINS NPO OTHERWISE. PATIENT HAS A RIGHT AKA, DRESSING IS INTACT. FECAL MANAGEMENT SYSTEM IN PLACE. PATIENT REMAINS ON TELE. PATIENT TAKEN OFF OF OXYGEN BY RESPIRATORY THERAPY, ON ROOM AIR NOW. NO PAIN NOTED WITH REPOSITIONING PATIENT. FALL PRECAUTIONS ARE IN PLACE, CALL LIGHT WITHIN REACH.
[2021-05-23 19:30] VITALS: BP 95/53
[2021-05-24 03:10] VITALS: BP 102/58
--- NOTE | 2021-05-24 03:51 | NUR ---
ASSUMED PT CARE AT 1900.PT WAS OBSERVED LYING DOWN ON HER L SIDE WITH HER EYES CLOSED AT SHIFT CHANGE.NO S/S OF PAIN NOTED.PT CONT ON JEVITY 1.5 @40 VIA PEG TUBE,PT LIAM WELL.PEARSON CATH,AIR LOSS MATTRESS AND FECAL MGT IN PLACE.FALL AND SZ PREC MAINTAINED.PT REPOSITIONED WHILE IN BED.DRSG TO HER T STUMP C/D/I.PT'S BP LOW AT SHIFT CHANGE,BETTER AFTER RECHECK.CALL LIGHT WITHIN REACH.
[2021-05-24 06:11] LABS: HEMATOCRIT 26.7 % (37.0-47.0); HEMOGLOBIN 8.8 gm/dL (12.0-15.0); MCH 30.3 pg (26.0-34.0); MCHC 33.1 g/dL (28.0-37.0); MCV 91.5 fL (80.0-100.0); RBC 2.92 mil/uL (4.20-5.00); RDW 15.6 % (10.5-14.5); WBC 10.8 thou/uL (4.0-11.0)
[2021-05-24 06:28] LABS: CALCIUM 9.1 mg/dL (8.5-10.1); CREATININE 0.5 mg/dL (0.6-1.0); MAGNESIUM 2.3 mg/dL (1.8-2.4); PHOSPHORUS 1.5 mg/dL (2.6-4.7); POTASSIUM 4.3 mmol/L (3.5-5.1)
[2021-05-24 07:27] VITALS: BP 127/76
--- NOTE | 2021-05-24 14:36 | NUR ---
ASSUMED PT CARE THIS AM. PT ALERT, BUT NONVERBAL. TUBE FEEDING INFUSING IN PEG TUBE WITHOUT RESIDUAL. PATIENT RECEIVING MEDICATIONS BY TUBE WITH WATER FLUSHES WELL. PATIENT HAS A PEARSON CATHETER IN PLACE, DRAINING WELL. FECAL MANAGEMENT SYSTEM IN PLACE, PATIENT GIVEN LOPERAMIDE ORDERED. PATIENT HAS A LOW AIRLOSS MATTRESS. PATIENT REMAINS ON TELE. NO PAIN NOTED. CALL LIGHT WITHIN REACH, CALL LIGHT WITHIN REACH.
[2021-05-24 15:25] VITALS: BP 104/64
[2021-05-24 19:32] VITALS: BP 110/66
[2021-05-25 03:30] VITALS: BP 114/69
[2021-05-25 07:15] LABS: HEMATOCRIT 28.1 % (37.0-47.0); HEMOGLOBIN 9.3 gm/dL (12.0-15.0); MCH 29.7 pg (26.0-34.0); MCHC 33.1 g/dL (28.0-37.0); MCV 89.7 fL (80.0-100.0); RBC 3.14 mil/uL (4.20-5.00); RDW 15.7 % (10.5-14.5); WBC 11.2 thou/uL (4.0-11.0)
[2021-05-25 07:27] LABS: CALCIUM 8.9 mg/dL (8.5-10.1); CREATININE 0.6 mg/dL (0.6-1.0); MAGNESIUM 2.1 mg/dL (1.8-2.4); PHOSPHORUS 2.8 mg/dL (2.6-4.7); POTASSIUM 4.3 mmol/L (3.5-5.1)
--- NOTE | 2021-05-25 07:30 | NUR ---
PT LYING IN BED. NO APPARENT PAIN. TURNING Q2. RESTING COMFORTABLY. FREQUENT OBSERVATION.
[2021-05-25 07:39] VITALS: BP 95/56
--- NOTE | 2021-05-25 13:16 | NUR ---
ASSUMED PT CARE THIS AM. PT ALERT, BUT NONVERBAL. PATIENT HAS 2 PEG TUBES, USING THE ONE LABELED FOR TUBE FEEDING. PATIENT HAS A PEARSON CATHETER, FECAL MANAGEMENT SYSTEM REMOVED AND STOOLS ARE MORE SOLID. PATIENT DOES NOT APPEAR IN PAIN WITH REPOSITIONING OR CARES. PATIENT CONTRACTED IN BILATERAL UPPER EXTREMETIES. DRESSING TO RIGHT AKA CHANGED THIS SHIFT, NO DRAINAGE NOTED. IV PATENT, FLUIDS INFUSING. PATIENT HAS A LOW AIRLOSS MATTRESS. PATIENT REMAINS ON TELE. FALL PRECAUTIONS ARE IN PLACE, CALL LIGHT WITHIN REACH.
[2021-05-25 16:12] VITALS: BP 149/84
[2021-05-25 19:15] VITALS: BP 95/50
[2021-05-26 07:37] LABS: HEMOGLOBIN 9.3 gm/dL (12.0-15.0); MCH 30.1 pg (26.0-34.0); MCHC 33.1 g/dL (28.0-37.0); RBC 3.07 mil/uL (4.20-5.00); RDW 16.1 % (10.5-14.5); WBC 12.1 thou/uL (4.0-11.0)
[2021-05-26 08:02] LABS: CALCIUM 8.4 mg/dL (8.5-10.1); CREATININE 0.5 mg/dL (0.6-1.0); MAGNESIUM 2.1 mg/dL (1.8-2.4); PHOSPHORUS 2.9 mg/dL (2.5-4.9); POTASSIUM 5.1 mmol/L (3.5-5.1)
[2021-05-26 08:30] VITALS: BP 96/78
--- NOTE | 2021-05-26 08:39 | NUR ---
PT LYING IN BED. NO APPARENT PAIN. PT NONVERBAL. TURN Q2. INCONTINENT OF STOOL. FREQUENT OBSERVATION.
--- NOTE | 2021-05-26 08:49 | NUR ---
Recommend discontinue D5 fluids and increase water flushes to 250ml every 6hr.
[2021-05-26 10:53] VITALS: BP 97/43
--- NOTE | 2021-05-26 11:11 | NUR ---
CARE TEAM INDICATED THAT PT IS MEDICALLY STABLE TO DC HOME THIS DAY. CM MET WITH PT AND SPOUSE JOHAN AT BEDSIDE THIS MORNING AND THEY ARE AWARE AND AGREEABLE. CM ARRANGED [facility] STRETCHER [employer] FOR BETWEEN [phone]. THEY ARE AWARE AND AGREEABLE. AWAITING FINAL DC ORDERS THEY ARE TO BE FAXED TO [facility] ONCE COMPLETED. NO OTHER CM INTERVENTION INDICATED. CASE CLOSED.
--- NOTE | 2021-05-26 14:06 | NUR ---
ASSUMED CARE OF PT AT 0700 THIS MORNING. PT WAS ADMITTED FOR UTI AND SEPSIS. PT IS POST CVA WITH NONVERBAL RESPONSE AND PARALYSIS. 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 PT HAS DRESSINGS ON RIGHT HIP AREA WITH ABD PADS AND TAPE AND KERLEX WITH BENIGNO. CONTRACTURED PERIPHERALS. ASSESSMENT FINDINGS CHARTED AND OTHERWISE UNREMARKABLE. PT IS BEING DISCHARGED WITH TRANSPORT ARRIVING THIS AFTERNOON.MEDS AND TX GIVEN NEEDED AND SCHEDULED.
[2021-05-26 15:50] VITALS: BP 92/52
[2021-05-26 22:01] VITALS: BP 97/59
--- NOTE | 2021-05-27 04:35 | NUR ---
PATIENT IS NON VERBAL.PATIENT HAD RIGHT AKA, DRESSING C/D/I. PATIENT TURNED Q 2 HOURS. PATIENT ON CONTINOUS FEEDING TUBE JEVITY 40 ML/HR. PATIENT ON IV MEDS FLUID. PAIN CONTROLLED THIS SHIFT. FALL PRECAUTION IN PLACE. PATIENT IN BED ASLEEP AT THIS TIME BREATHING REGULAR AND UNLABOURED.
[2021-05-27 05:44] LABS: ABSOLUTE NEUTROPHILS 7.7 thou/uL (1.4-8.2); BASOPHILS 0.4 % (0.0-2.0); EOSINOPHILS 3.2 % (0.0-3.0); HEMATOCRIT 27.1 % (37.0-47.0); MCH 30.3 pg (26.0-34.0); MCHC 33.2 g/dL (28.0-37.0); MCV 91.2 fL (80.0-100.0); MONOCYTES 6.1 % (1.0-8.0); PLATELET COUNT 191 thou/uL (150-400); POLYS 75.3 % (36.0-66.0); RBC 2.97 mil/uL (4.20-5.00); WBC 10.3 thou/uL (4.0-11.0)
[2021-05-27 05:59] LABS: CALCIUM 8.2 mg/dL (8.5-10.1); CREATININE 0.5 mg/dL (0.6-1.0); MAGNESIUM 2.1 mg/dL (1.8-2.4); POTASSIUM 4.7 mmol/L (3.5-5.1)
[2021-05-27 07:38] VITALS: BP 96/54
--- NOTE | 2021-05-27 08:06 | NUR ---
WOUND CARE F/U; ULCER PEG TUBE SITE ALL HEALED, SCANT BROWNISH DRAINAGE FROM INSERTION SITE LATERAL PEG TUBE, BOTH SITES CLEANSED W/ NS, DRY SPLIT GAUZE APPLIED, INFORMED PEDICURIST TO VERIFY W/ VITO DOZIER ON WOUND CARE TO Martha CANALES PRIOR TO DC PEDICURIST AWARE
[2021-05-27 16:26] VITALS: BP 100/50
--- NOTE | 2021-05-27 16:32 | NUR ---
STILL AWAITING ID INPUT RELATED TO DC NEEDS OF THIS NOTE PER HOSPITALIST. SHOULD IT BE DETERMINED THAT PT IS MEDICALLY STABLE TO DC TO HOME THIS EVENING [facility] when ready to dc home, request stretcher [phone]. Fax dc orders to [facility] # [phone], phone # [phone]
[2021-05-27 19:55] VITALS: BP 105/59
[2021-05-28 00:47] LABS: URINE BILIRUBIN NEGATIVE (Negative); URINE BLOOD 3+ (Negative); URINE CLARITY CLEAR; URINE COLOR YELLOW; URINE GLUCOSE-RANDOM* NEGATIVE (Negative); URINE KETONES NEGATIVE (Negative); URINE NITRITE-REFLEX NEGATIVE (Negative); URINE PROTEIN (DIPSTICK) NEGATIVE (Negative); URINE SPECIFIC GRAVITY <= 1.005 (1.005-1.035); URINE UROBILINOGEN 0.2 E.U./dl (0.2-1.0)
[2021-05-28 00:50] LABS: URINE LEUKOCYTES-REFLEX 2+ (Negative)
[2021-05-28 00:55] LABS: BACTERIA-REFLEX 1-9 Few /HPF (None Seen); CASTS None Seen /LPF (None Seen); CRYSTALS None Seen /LPF (None Seen); MUCUS 0-3 Light strn/LPF (None Seen); SQUAMOUS 4-10 Moderate /LPF (0-3); URINE WBC-REFLEX 6-15 Few /HPF (0-5)
--- NOTE | 2021-05-28 03:53 | NUR ---
ASSUEMD CARE OF PT AT SHIFT CHANGE. PT IS ALERT BUT IS NON-VERBAL. FALL PRECAUTION IN PLACE. PEARSON IN PLACE AND PATIENT. PT WAS TURNED Q2H. ASSESSMENT CHARTED. TF CONTINUED AT GOAL RATE. IVF CONTINUED. SURGICAL DRESSING IS C/D/I. PT WAS ABLE TO SLEEP PART OF THE SHIFT. VSS AND NO S/S OF ACUTE DISTRESS. WILL CONTINUE TO MONITOR.
[2021-05-28 07:51] VITALS: BP 105/57
[2021-05-28] MEDS ORDERED: BAYER CHEWABLE81 MG PO (10:29)
[2021-05-28] MEDS ORDERED: AMOXICILLIN 50500 M1 PO (10:29)
[2021-05-28 11:04] VITALS: BP 97/43
--- NOTE | 2021-05-28 11:13 | NUR ---
CARE TEAM INDICATED THAT PT IS MEDICALLY STABLE TO DC HOME THIS DAY. ORDERS FAXED TO [id number]. 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 SPOUSE AT BEDSIDE HE IS AWARE AND AGREEABLE. NO OTHER CM INTERVENTION INDICATED. CASE CLOSED.
--- NOTE | 2021-05-28 11:53 | NUR ---
IV AND TELE DISOCONTINUED. ASSESS PT WITH HOME HEALTH RN ABOUT PEARSON, PEG AND STUMP CARE. INSTRUCTIONS PRINTED OFF ON DISCHARGE PAPER WORK. UNDERSTANDS ALL FOLLOW UP ORDERS AND EXTRA SUPPLIES GIVEN TO . PT HAD BOWEL MOVEMENT AND WAS CLEANED TRANSPORTATION ARRIVED. CHECKED STUMP DRESSING AND WAS CDI. PT LEFT HOSPITAL VIA TRANSPORT AT 1150 TO HOME.
== END 2021-05-28 12:16 | disposition home health service (06) | DRG 853 ==
LOC: ER 02:18 → EROBS 03:42 → 2N 03:42 → EROBS 07:22 → 2N 12:36 → ICU 05-07 00:37 → 4W 05-22 14:45
PROVIDERS: Emergency Medicine; Hospitalist; Internal Medicine; Internal Medicine Hematology & Oncology; Internal Medicine Pulmonary Disease; Nurse Practitioner; Nurse Practitioner Family; Pediatrics; Specialist; ADMIT Internal Medicine; ATTEND Internal Medicine
DX: A41.59 Other Gram-negative sepsis (principal); G92 Toxic encephalopathy; E43 Unspecified severe protein-calorie malnutrition; J96.01 Acute respiratory failure with hypoxia; G82.50 Quadriplegia, unspecified; J18.9 Pneumonia, unspecified organism; I62.00 Nontraumatic subdural hemorrhage, unspecified; D65 Disseminated intravascular coagulation [defibrination syndrome]; R65.21 Severe sepsis with septic shock; M80.851 Other osteoporosis with current pathological fracture, right femur; R04.2 Hemoptysis; E87.0 Hyperosmolality and hypernatremia; R18.8 Other ascites; D62 Acute posthemorrhagic anemia; K94.23 Gastrostomy malfunction; K92.2 Gastrointestinal hemorrhage, unspecified; I69.351 Hemiplegia and hemiparesis following cerebral infarction affecting right dominant side; Z68.1 Body mass index [BMI] 19.9 or less, adult; K52.1 Toxic gastroenteritis and colitis; N13.6 Pyonephrosis; R13.19 Other dysphagia; F32.9 Major depressive disorder, single episode, unspecified; R53.81 Other malaise; B96.4 Proteus (mirabilis) (morganii) as the cause of diseases classified elsewhere; I95.9 Hypotension, unspecified; E87.6 Hypokalemia; E83.42 Hypomagnesemia; G40.409 Other generalized epilepsy and epileptic syndromes, not intractable, without status epilepticus; R65.20 Severe sepsis without septic shock; I50.9 Heart failure, unspecified; K94.21 Gastrostomy hemorrhage; Y83.8 Other surgical procedures as the cause of abnormal reaction of the patient, or of later complication, without mention of misadventure at the time of the procedure; Z20.822 Contact with and (suspected) exposure to COVID-19; Y82.8 Other medical devices associated with adverse incidents; D72.823 Leukemoid reaction; G89.29 Other chronic pain; I11.0 Hypertensive heart disease with heart failure; T36.95XA Adverse effect of unspecified systemic antibiotic, initial encounter; Z74.01 Bed confinement status; Z87.442 Personal history of urinary calculi; Z88.1 Allergy status to other antibiotic agents; Z79.82 Long term (current) use of aspirin; Z79.899 Other long term (current) drug therapy; Z82.3 Family history of stroke; Z80.1 Family history of malignant neoplasm of trachea, bronchus and lung; Z82.5 Family history of asthma and other chronic lower respiratory diseases; Z82.49 Family history of ischemic heart disease and other diseases of the circulatory system; Y92.89 Other specified places as the place of occurrence of the external cause
CPT/HCPCS: 10045; 10078; 10081; 50010; 50101; 50386; 51412; 51620; 51767; 53000; 56524; 56525; 56526; 56674; 56815; 57091; 57160; 58565; 62110; 62900; 70005; 85076